=== PATIENT | female | born 1955 | race African-American/Black ===

== ENCOUNTER 2017-01-18 10:00 | Inpatient (IN) | payer OTHER, MEDICAID ==
--- NOTE | 2017-01-18 10:21 | CPEKG ---
Heart Rate: 80 RR Interval: 750 P-R Interval: 212 QRSD Interval: 80 QT Interval: 396 QTC Interval: 457 P [place]: 51 QRS [place]: 10 T Wave [place]: 30 EKG Severity - ABNORMAL ECG - EKG Impression: SINUS RHYTHM EKG Impression: CONSIDER LEFT VENTRICULAR HYPERTROPHY Electronically Signed By: Myra Dill 19-Jan-2017 08:07:55
[2017-01-18] MEDS ORDERED: FUROSEMIDE 20 MG/2 ML VIAL IVP ONE (10:30)
--- NOTE | 2017-01-18 10:43 | EDPHY ---
HPI/HX/ROS/PE/MDM Narrative: CHIEF COMPLAINT: Shortness of breath, peripheral edema HISTORY OF PRESENT ILLNESS: Patient is a 61 y/o female arriving via EMS complaining of worsening shortness of breath onset last night. She has a history of CHF, anemia, diabetes, and stage 4 renal insufficiency. She is not on dialysis though she has been evaluated for this recently. Her creatinine was 3.2 yesterday which she believes is close to baseline for her. She complains of increasing widespread peripheral edema for which her proced tech started her on Lasix and Losartan yesterday. She woke from sleep around 21:30 last night with dyspnea despite home O2 use and staff administered an albuterol nebulizer treatment. This improved her symptoms and she was able to sleep for awhile, but awoke again this morning with dyspnea and required a second albuterol treatment. She does not normally use albuterol. She had some associated nausea that has since resolved. She denies fever, chills, chest pain, palpitations, diarrhea, urinary complaints, headache, lightheadedness. No known history of CAD , valvular disease, or GI disorders. REVIEW OF SYSTEMS: Aside from elements discussed in the HPI, a comprehensive 10-point review of systems was reviewed and is negative. PAST MEDICAL HISTORY: CHF, diabetes, stage 4 renal insufficiency, pneumonia. SOCIAL HISTORY: Resident at [facility]. PCP: Dr. Hemal Ware. Prior medical history reviewed including transfer paperwork from [facility] 01/18/17. VITAL SIGNS: BP is 173/80 GENERAL: Obese, resting comfortably, sitting up, in no respiratory distress. HEENT: Atraumatic. Eyes: No icterus, no injection. Mouth: dry mucous membranes. No erythema or lesions. Neck: supple with no adenopathy. LUNGS: Anterior wheezes bilaterally when supine. No rhonchi or rales. CARDIAC: Mild tachycardic rate and rhythm, no rubs, murmurs or gallops. ABDOMEN: Soft, obese, nontender, nondistended. BACK: No CVA tenderness. EXTREMITIES: Bilateral lower extremity 3+ pitting edema. No trauma. Range of motion is normal throughout. NEURO: Alert and oriented, grossly nonfocal. SKIN: Warm and dry, no rash. PSYCHIATRIC: Normal mentation, no agitation. Portions of this note were transcribed by a durable medical equipment repairer. I personally performed a history, physical exam, medical decision making, and confirmed accuracy of information the transcribed note. ED Course: This is a 61 y/o female with a history of CHF, diabetes, and kidney failure presenting with shortness of breath and peripheral edema. Labs from yesterday show hematocrit 24 and creatinine 3.2. On exam there are bilateral anterior wheezes while supine, and 3+ pitting edema at both lower extremities. Abdomen is benign and patient is afebrile. Plan for IV, basic labs, EKG, chest X-ray, and 20mg IV Lasix. The 12 lead EKG was interpreted by myself. Sinus rhythm rate 80. See hard copy and/or "tracemaster" electronic copy for interpretation. My interpretation of the chest x-ray is cardiomegaly, prominent vascular markings. Dr. Clemons, radiology reads chest X-ray as likely pulmonary edema/CHF. Laboratory data was remarkable for indeterminate troponin at 0.041, elevated BMP 8490, creatinine of 3.3., elevated D-dimer. Patient reports an allergy to aspirin did not receive aspirin in the emergency department. Patient will require admission to the hospital for treatment of her congestive heart failure, indeterminate troponin, and shortness of breath and hypoxemia. She does have a prior history of thromboembolic disease and PEs, and is currently on Xarelto. Recurrent PE is in the differential of the patient's renal insufficiency precludes evaluation by CT scanning at this time. Patient was admitted to the PCU for further evaluation. She did receive Lasix in the emergency department. She remained on oxygen. She does have baseline O2 requirement of 2 L at night and 3 L during the day when she is active. 1220: Spoke with hospitalist service. Dr. Nicole accepts admission. MDM: Differential diagnosis for the patient's shortness of breath was considered including but not limited to pulmonary infectious processes, COPD exacerbation, pulmonary emboli, pulmonary edema, congestive heart failure, and cardiac causes. - Data Points Imaging Results: Imaging Impressions Chest X-Ray 01/18/17 10:30 Impression: 1. Findings suggestive of pulmonary edema/CHF. Bilateral pneumonia is felt to be less likely. 2. Moderate anterior wedge compression of what appears to be T10. Consider DEXA scan at some point to evaluate underlying bone mineral density. Imaging: Discussed imaging studies w/ call or contact centre team leader Radiologist, I viewed and interpreted images myself Laboratory Results: Laboratory Results 01/18/17 11:40 01/18/17 11:30 01/18/17 01/18/17 01/18/17 11:50 11:40 11:40 WBC RBC Hgb Hct MCV MCH MCHC RDW Plt Count MPV Neut % (Auto) Lymph % (Auto) [place] % (Auto) Eos % (Auto) Baso % (Auto) Nucleat RBC Rel Count Absolute Neuts (auto) Absolute Lymphs (auto) Absolute Monos (auto) Absolute Eos (auto) Absolute Basos (auto) Absolute Nucleated RBC Immature Gran % Immature Gran # D-Dimer 1.97 ug/mLFEU H ug/mLFEU (0.00-0.50) Sodium Potassium Chloride Carbon Dioxide Anion Gap BUN Creatinine Estimated GFR Glucose Hemoglobin A1c 7.5 % H % (4.0-6.0) Estim Average Glucose 169 mg/dL H mg/dL (68-126) Calcium Phosphorus Pending Magnesium Pending Total Bilirubin Conjugated Bilirubin Unconjugated Bilirubin AST ALT Alkaline Phosphatase Troponin I NT-Pro-B Natriuret Pep Total Protein Albumin Lipase 01/18/17 01/18/17 11:40 11:30 WBC 7.62 10^3/uL 10^3/uL (3.80-9.50) RBC 2.82 10^6/uL L 10^6/uL (4.18-5.33) Hgb 8.3 g/dL L g/dL (12.6-16.3) Hct 25.1 % L % (38.0-47.0) MCV 89.0 fL fL (81.5-99.8) MCH 29.4 pg pg (27.9-34.1) MCHC 33.1 g/dL g/dL (32.4-36.7) RDW 14.9 % % (11.5-15.2) Plt Count 260 10^3/uL 10^3/uL (150-400) MPV 9.7 fL fL (8.7-11.7) Neut % (Auto) 77.6 % H % (39.3-74.2) Lymph % (Auto) 13.6 % L % (15.0-45.0) [place] % (Auto) 7.3 % % (4.5-13.0) Eos % (Auto) 1.0 % % (0.6-7.6) Baso % (Auto) 0.4 % % (0.3-1.7) Nucleat RBC Rel Count 0.0 % % (0.0-0.2) Absolute Neuts (auto) 5.90 10^3/uL 10^3/uL (1.70-6.50) Absolute Lymphs (auto) 1.04 10^3/uL 10^3/uL (1.00-3.00) Absolute Monos (auto) 0.56 10^3/uL 10^3/uL (0.30-0.80) Absolute Eos (auto) 0.08 10^3/uL 10^3/uL (0.03-0.40) Absolute Basos (auto) 0.03 10^3/uL 10^3/uL (0.02-0.10) Absolute Nucleated RBC 0.00 10^3/uL 10^3/uL (0-0.01) Immature Gran % 0.1 % % (0.0-1.1) Immature Gran # 0.01 10^3/uL 10^3/uL (0.00-0.10) D-Dimer Sodium 136 mEq/L mEq/L (134-144) Potassium 4.1 mEq/L mEq/L (3.5-5.2) Chloride 109 mEq/L mEq/L (97-110) Carbon Dioxide 20 mEq/l L mEq/l (22-31) Anion Gap 7 mEq/L L mEq/L (8-16) BUN 33 mg/dL H mg/dL (7-23) Creatinine 3.3 mg/dL H mg/dL (0.6-1.0) Estimated GFR 14 Glucose 318 mg/dL H mg/dL (70-100) Hemoglobin A1c Estim Average Glucose Calcium 9.4 mg/dL mg/dL (8.5-10.4) Phosphorus Magnesium Total Bilirubin 0.5 mg/dL mg/dL (0.1-1.4) Conjugated Bilirubin 0.2 mg/dL mg/dL (0.0-0.5) Unconjugated Bilirubin 0.3 mg/dL mg/dL (0.0-1.1) AST 16 IU/L IU/L (14-46) ALT 23 IU/L IU/L (9-52) Alkaline Phosphatase 85 IU/L IU/L (38-126) Troponin I 0.041 ng/mL H ng/mL (0.000-0.034) NT-Pro-B Natriuret Pep 8490 pg/mL H pg/mL (0-125) Total Protein 5.9 g/dL L g/dL (6.3-8.2) Albumin 2.9 g/dL L g/dL (3.5-5.0) Lipase 65 IU/L IU/L (23-300) Medications Given: Discontinued Medications Furosemide (Lasix Injection) 20 mg IVP EDNOW ONE Stop: 01/18/17 10:31 Last Admin: 01/18/17 11:14 Dose: 20 mg General Time Seen by Provider: 01/18/17 10:10 Initial Vital Signs: Initial Vital Signs Temperature (C) 36.9 C 01/18/17 10:08 Heart Rate 80 01/18/17 10:08 Respiratory Rate 19 01/18/17 10:08 Blood Pressure 173/80 H 01/18/17 10:08 O2 Sat (%) 88 L 01/18/17 10:08 O2 Delivery Mode Nasal Cannula O2 (L/minute) 2 Allergies/Adverse Reactions: KALYANI Inhibitors Allergy (Verified 01/18/17 10:46) aspirin Allergy (Verified 01/18/17 10:46) gentamicin Allergy (Verified 01/18/17 10:46) lisinopril Allergy (Verified 01/18/17 10:46) metformin Allergy (Verified 01/18/17 10:45) Sulfa (Sulfonamide Antibiotics) Allergy (Verified 01/18/17 10:46) Home Medications: Medication Instructions Recorded ARIPiprazole [Abilify 10 mg (*)] 15 mg PO HS 01/18/17 Insulin Aspart [novoLOG] 3 unit SC TIDMEAL 01/18/17 Insulin Detemir [Levemir] 10 unit SQ DAILY 01/18/17 Labetalol HCl [Trandate 100 mg (*)] 300 mg PO TIDMEAL 01/18/17 Polyethylene Glycol 3350 [Miralax 17 gm PO Q2D 01/18/17 17 gm (*)] Sertraline HCl [Zoloft 50mg (*)] 50 mg PO HS 01/18/17 amLODIPine BESYLATE [Norvasc 10 mg 10 mg PO DAILY 01/18/17 (*)] Departure - Departure Disposition: [facility] Inpatient Acute Clinical Impression: Peripheral edema, Hypoxemia, Shortness of breath, Troponin level elevated Condition: Fair Report Scribed for: Myra Dill Report Scribed by: Rosaura Priest Date of Report: 01/18/17 Time of Report: 11:36
[2017-01-18 11:48] LABS: % IMMATURE GRANULYOCYTES 0.1 % (0.0-1.1); ABSOLUTE IMMATURE GRANULOCYTES 0.01 10^3/uL (0.00-0.10); ADD DIFF? NO; ADD MORPH? NO; ADD SCAN? NO; ATYPICAL LYMPHOCYTE FLAG 0 (0-99); FRAGMENT RBC FLAG 0 (0-99); HEMATOCRIT 25.1 % (38.0-47.0); HEMOGLOBIN 8.3 g/dL (12.6-16.3); LEFT SHIFT FLG 0 (0-99); LIPEMIA HEMOLYSIS FLAG 80 (0-99); MEAN CELL HEMOGLOBIN 29.4 pg (27.9-34.1); MEAN CELL HEMOGLOBIN CONCENTR. 33.1 g/dL (32.4-36.7); MEAN PLATELET VOLUME 9.7 fL (8.7-11.7); PLATELET CLUMPS FLAG 0 (0-99); PLATELET COUNT 260 10^3/uL (150-400); RED BLOOD CELL COUNT 2.82 10^6/uL (4.18-5.33); RED CELL DISTRIBUTION WIDTH 14.9 % (11.5-15.2)
[2017-01-18 11:50] LABS: ALANINE AMINOTRANSFERASE 23 IU/L (9-52); ALBUMIN 2.9 g/dL (3.5-5.0); ALKALINE PHOSPHATASE 85 IU/L (38-126); ANION GAP 7 mEq/L (8-16); ASPARTATE AMINOTRANSFERASE 16 IU/L (14-46); BILIRUBIN,TOTAL 0.5 mg/dL (0.1-1.4); BILIRUBIN-CONJUGATED 0.2 mg/dL (0.0-0.5); BILIRUBIN-UNCONJUGATED 0.3 mg/dL (0.0-1.1); CALCIUM 9.4 mg/dL (8.5-10.4); CARBON DIOXIDE 20 mEq/l (22-31); CHLORIDE 109 mEq/L (97-110); CREATININE 3.3 mg/dL (0.6-1.0); GLOMERULAR FILTRATION RATE 14; GLUCOSE 318 mg/dL (70-100); POTASSIUM 4.1 mEq/L (3.5-5.2); SODIUM 136 mEq/L (134-144); TOTAL PROTEIN 5.9 g/dL (6.3-8.2)
[2017-01-18 12:01] LABS: TROPONIN I 0.041 ng/mL (0.000-0.034)
[2017-01-18] MEDS ORDERED: ONDANSETRON 4 MG/2 ML VIAL IVP PRN (13:41)
[2017-01-18] MEDS ORDERED: ONDANSETRON DISINTEGRATING 4 MG TAB PO PRN (13:41)
[2017-01-18] MEDS ORDERED: D50W 25 GM/50 ML SYR IVP PRN (14:07)
--- NOTE | 2017-01-18 14:13 | PDGENHP ---
History and Physical - Chief Complaint SOB - History of Present Illness 61 yo female with h/o heart failure, stage 4 CKD, and diabetes, presents to ED with shortness of breath. She was seen by her industrial robotics mechanic at [facility] in [place] yesterday and started on Lasix and Losartan. She reports increasing LE and UE edema. She also endorses orthopnea and paroxysmal nocturnal dyspnea. She denies CP. She has been more SOB over past few days and this became more severe today and she was brought to the ED by EMS from [facility]. She is a non-smoker. She has diabetes for which she takes just short acting insulin. In the ED, she was hypertensive, had an elevated BNP, and CXR c/w pulmonary edema. She was given IV Lasix and is admitted to the hospital for further management. History Information - Allergies/Home Medication List Allergies/Adverse Reactions: KALYANI Inhibitors Allergy (Verified 01/18/17 10:46) aspirin Allergy (Verified 01/18/17 10:46) gentamicin Allergy (Verified 01/18/17 10:46) lisinopril Allergy (Verified 01/18/17 10:46) metformin Allergy (Verified 01/18/17 10:45) Sulfa (Sulfonamide Antibiotics) Allergy (Verified 01/18/17 10:46) Home Medications: ARIPiprazole [Abilify 10 mg (*)] 15 mg PO HS 01/18/17 [Last Taken 01/17/17] Insulin Aspart [novoLOG] 3 unit SC TIDMEAL 01/18/17 [Last Taken 01/18/17 09:00] Insulin Detemir [Levemir] 10 unit SQ DAILY 01/18/17 [Last Taken 01/18/17] Labetalol HCl [Trandate 100 mg (*)] 300 mg PO TIDMEAL 01/18/17 [Last Taken 01/18 09:00] Polyethylene Glycol 3350 [Miralax 17 gm (*)] 17 gm PO Q2D 01/18/17 [Last Taken 01/17/17] Sertraline HCl [Zoloft 50mg (*)] 50 mg PO HS 01/18/17 [Last Taken 01/17/17] amLODIPine BESYLATE [Norvasc 10 mg (*)] 10 mg PO DAILY 01/18/17 [Last Taken ] I have personally reviewed and updated: family history, medical history, social history, surgical history - Past Medical History CHF, diabetes type 2, hypertension Additional medical history: CKD stage 4 secondary to diabetic nephropathy, Schizophrenia, Anemia of CKD - Surgical History Reports: no pertinent surgical hx - Family History Additional family history: mother of heart failure in her early 60's - Social History Smoking Status: Never smoked Alcohol Use: None Drug Use: None Additional social history: Lives at [facility]. Schizophrenia, followed by Dr. Coombs. Review of Systems ROS: 10pt was reviewed & negative except for what was stated in HPI & below Physical Exam Temp Pulse Resp BP Pulse Ox 37.2 C 86 15 191/106 H 94 01/18/17 13:59 01/18/17 13:59 01/18/17 13:59 01/18/17 13:59 01/18/17 13:59 O2 (L/minute) 2 Constitutional: no apparent distress Eyes: PERRL Ears, Nose, Mouth, Throat: moist mucous membranes Cardiovascular: regular rate and rhythym, JVD, other (10 cm JVD with HJR) Respiratory: no respiratory distress, inspiratory crackles Gastrointestinal: normoactive bowel sounds, soft, non-tender abdomen Skin: warm Musculoskeletal: other (2+ b/l LE pitting edema) Neurologic: AAOx3 Psychiatric: interacting appropriately Lab Data & Imaging Review 01/18/17 11:40 01/18/17 11:30 WBC 7.62 10^3/uL (3.80-9.50) 01/18/17 11:40 RBC 2.82 10^6/uL (4.18-5.33) L 01/18/17 11:40 Hgb 8.3 g/dL (12.6-16.3) L 01/18/17 11:40 Hct 25.1 % (38.0-47.0) L 01/18/17 11:40 MCV 89.0 fL (81.5-99.8) 01/18/17 11:40 MCH 29.4 pg (27.9-34.1) 01/18/17 11:40 MCHC 33.1 g/dL (32.4-36.7) 01/18/17 11:40 RDW 14.9 % (11.5-15.2) 01/18/17 11:40 Plt Count 260 10^3/uL (150-400) 01/18/17 11:40 MPV 9.7 fL (8.7-11.7) 01/18/17 11:40 Neut % (Auto) 77.6 % (39.3-74.2) H 01/18/17 11:40 Lymph % (Auto) 13.6 % (15.0-45.0) L 01/18/17 11:40 [place] % (Auto) 7.3 % (4.5-13.0) 01/18/17 11:40 Eos % (Auto) 1.0 % (0.6-7.6) 01/18/17 11:40 Baso % (Auto) 0.4 % (0.3-1.7) 01/18/17 11:40 Nucleat RBC Rel Count 0.0 % (0.0-0.2) 01/18/17 11:40 Absolute Neuts (auto) 5.90 10^3/uL (1.70-6.50) 01/18/17 11:40 Absolute Lymphs (auto) 1.04 10^3/uL (1.00-3.00) 01/18/17 11:40 Absolute Monos (auto) 0.56 10^3/uL (0.30-0.80) 01/18/17 11:40 Absolute Eos (auto) 0.08 10^3/uL (0.03-0.40) 01/18/17 11:40 Absolute Basos (auto) 0.03 10^3/uL (0.02-0.10) 01/18/17 11:40 Absolute Nucleated RBC 0.00 10^3/uL (0-0.01) 01/18/17 11:40 Immature Gran % 0.1 % (0.0-1.1) 01/18/17 11:40 Immature Gran # 0.01 10^3/uL (0.00-0.10) 01/18/17 11:40 D-Dimer 1.97 ug/mLFEU (0.00-0.50) H 01/18/17 11:40 Sodium 136 mEq/L (134-144) 01/18/17 11:30 Potassium 4.1 mEq/L (3.5-5.2) 01/18/17 11:30 Chloride 109 mEq/L (97-110) 01/18/17 11:30 Carbon Dioxide 20 mEq/l (22-31) L 01/18/17 11:30 Anion Gap 7 mEq/L (8-16) L 01/18/17 11:30 BUN 33 mg/dL (7-23) H 01/18/17 11:30 Creatinine 3.3 mg/dL (0.6-1.0) H 01/18/17 11:30 Estimated GFR 14 01/18/17 11:30 Glucose 318 mg/dL (70-100) H 01/18/17 11:30 Calcium 9.4 mg/dL (8.5-10.4) 01/18/17 11:30 Total Bilirubin 0.5 mg/dL (0.1-1.4) 01/18/17 11:30 Conjugated Bilirubin 0.2 mg/dL (0.0-0.5) 01/18/17 11:30 Unconjugated Bilirubin 0.3 mg/dL (0.0-1.1) 01/18/17 11:30 AST 16 IU/L (14-46) 01/18/17 11:30 ALT 23 IU/L (9-52) 01/18/17 11:30 Alkaline Phosphatase 85 IU/L (38-126) 01/18/17 11:30 Troponin I 0.041 ng/mL (0.000-0.034) H 01/18/17 11:30 NT-Pro-B Natriuret Pep 8490 pg/mL (0-125) H 01/18/17 11:30 Total Protein 5.9 g/dL (6.3-8.2) L 01/18/17 11:30 Albumin 2.9 g/dL (3.5-5.0) L 01/18/17 11:30 Lipase 65 IU/L (23-300) 01/18/17 11:30 Visualized and Interpreted Chest x-ray results: Yes Chest X-Ray results: other (pulmonary edema) EKG Interpretation: Positive for: normal sinsus rhythm Assessment & Plan Assessment: Acute heart failure - presents with dyspnea, pulmonary edema on CXR, peripheral edema and elevated BNP. Responded to IV Lasix. Trop mildly elevated, suspect strain in setting of acute HF. She is chest pain free. EKG non-ischemic. -cont diuresis with IV Lasix -follow I&O's, daily weights -echo ordered -trend troponin -cardiology consulted Hypertension - BP 190/100's on my exam. Given IV Lasix. Takes Labetalol, Norvasc as outpt. Apparently got a Rx from industrial robotics mechanic for Losartan, but hasn' t started it yet. -await echo, may consider changing Labetalol to Coreg -Resume Norvasc when med rec completed though note this can cause edema -Will defer Losartan while diuresing, start when more euvolemic -prn hydralazine -nitro-paste per cards CKD stage 4 -baseline Cr is 3-3.5. Suspect secondary to diabetic nephropathy. She is followed by nephrology at [facility] in [place]. Renal workup at [facility] 11/2016 included bland urine sediment, atrophic kidneys on renal u/s without hydro, and nephrotic range proteinuria. Cozaar recently resumed with Cr 3.1. -check ua -monitor Cr closely with diuresis -planning for nephrology consult DM type 2 - bg 318 on arrival. -check a1c -start lantus 10 u hs and SSI Anemia of CKD - Had neg EGD/c-scope at [facility], hgb stable. No e/o bleeding -receives aranesp via outpt nephrology Schizoprenia - mood stable. Followed by Dr. Coombs -cont jonny Full code DVT PPLX - Heparin Dispo - admit to inpt. Will likely require >48 hrs hospitalization for management of acute decompensated heart failure
[2017-01-18 14:51] LABS: HEMOGLOBIN A1C 7.5 % (4.0-6.0)
[2017-01-18] MEDS ORDERED: CARVEDILOL 6.25 MG TAB PO ONE (15:58)
[2017-01-18] MEDS: INSULIN LISPRO 100 UNIT/ML SC SCH (16:19)
[2017-01-18] MEDS: FUROSEMIDE 20 MG/2 ML VIAL IVP SCH (16:19)
[2017-01-18] MEDS: NITROGLYCERIN 2% 1 GM PACKET TP SCH (16:22)
[2017-01-18] MEDS: HEPARIN 5,000 UNIT/0.5 ML SYR SC SCH ×2 (16:30→21:46)
[2017-01-18 16:35] LABS: MAGNESIUM 1.8 mg/dL (1.6-2.3)
--- NOTE | 2017-01-18 16:52 | ECHO ---
[id number] + + [address] : : [place] [address] : : [phone] + + Adult Echocardiographic Report + --+ :Name: ISAEL GARCIA MStudy Date: 01/18/2017 02:36 PM BP: 172/116 mm Hg: : Hospital Admission Number: [id number] : :: 1955 Gender: Female Height: 71 in : :Age: 61 yrs Race: A Weight: 251 lb : :Reason For Study: Eval LV Fx : : BSA: 2.3 meter s2: :History: SOB, HTN : + --+ MMode/2D Measurements \T\ Calculations IVSd: 1.1 cm LVIDd: 4.6 cm FS: 35.8 % MV Diam: 3.4 cm LVPWd: 1.3 cm LVIDs: 3.0 cm EDV(Teich): 97.9 ml ESV(Teich): 33.9 ml EF(Teich): 65.4 % Ao root diam: 3.9 cm LVOT diam: 2.0 cm ACS: 1.9 cm LVOT area: 3.1 cm2 Normal Measurement Values: + + :LVIDd (3.5-5.7cm) IVSd (0.6-1.1cm) LVPWd (0.6-1.1cm) Aortic Root (2.0-3.7cm)Left Atrium (1.5-4.0cm): :LV Vol(d) (76-115ml) LV Vol(s) (29-48ml) Ejec Fraction (50-65%)PV Prateek (0.6- 1.2m/s) TV Prateek (0.4-1.0m/s) : :MV E Prateek (0.8-1.0m/s)MV A Prateek (0.3-1.0m/s)LVOT Prateek (0.7-1.2m/s) Asc Ao Prateek ( 0.9-1.8m/s) : + + Doppler Measurements \T\ Calculations MV V2 max: Ao mean PG: LV V1 mean PG: MR max prateek: 205.0 cm/sec 5.7 mmHg 2.3 mmHg 733.3 cm/sec MV max P.8 mmHgAo V2 mean: LV V1 mean: MR max PG: MV V2 mean: 113.0 cm/sec 68.7 cm/sec 216.0 mmHg 98.7 cm/sec Ao V2 VTI: 35.4 cm LV V1 VTI: 25.9 cm MV mean P.1 mmHg MV V2 VTI: 52.2 cm YAKOV(I,D): 2.3 cm2 MV area (1 diam): 9.1 cm2 MVA(VTI): 1.6 cm2 MV Flow area(1diam): 9.1 cm2 MR(RF 1 diam): SV(MV 1 diam): TR max prateek: RF(MV,Ao)(1 diam): 11.8 % 473.5 ml 358.3 cm/sec 0.12 SI(MV 1 diam): TR max PG: RF(MV,LVOT) 51.4 mmHg (1diam): 0.83 203.9 ml/m2 RAP systole: SV(LVOT): 81.3 ml 5.0 mmHg RVSP(TR): 56.4 mmHg Left Ventricle The left ventricle is normal in size. There is mild to moderate concentric left ventricular hypertrophy. The left ventricular ejection fraction is normal. There is Doppler evidence for diastolic dysfunction. Ejection Fraction = 66%. No regional wall motion abnormalities noted. Right Ventricle The right ventricle is normal in size and function. Atria The left atrium is mildly dilated. Right atrial size is normal. Mitral Valve There is mild mitral annular calcification. Small focal calcification at the tip of the anterior mitral leaflet. There is no mitral valve stenosis. There is moderate mitral regurgitation. Tricuspid Valve Normal tricuspid valve. There is mild tricuspid regurgitation. Right ventricular systolic pressure is 57mmHg. There is Doppler evidence for moderate pulmonary hypertension. Aortic Valve The aortic valve is trileaflet. There is no aortic stenosis. There is no aortic insufficiency. Pulmonic Valve The pulmonic valve is normal in structure and function. There is no pulmonic valvular regurgitation. Great Vessels The aortic root is normal size. Pericardium/Pleural Small pericardial effusion. Conclusion A complete two-dimensional transthoracic echocardiogram was performed (2D, M-mode, Doppler and color flow Doppler). The patient is in NSR. The left ventricular ejection fraction is normal. There is Doppler evidence for diastolic dysfunction. Ejection Fraction = 66%. There is mild to moderate concentric left ventricular hypertrophy. The right ventricle is normal in size and function. The left atrium is mildly dilated. There is mild mitral annular calcification. Small focal calcification at the tip of the anterior mitral leaflet. There is moderate mitral regurgitation. There is mild tricuspid regurgitation. Right ventricular systolic pressure is 57mmHg. There is Doppler evidence for moderate pulmonary hypertension. Small pericardial effusion. Final Reading Physician: Rose Soto signed on 01/18/2017 04:51 PM Ordering Physician: Karon Nicole Performed By: Leonard Malik, MELBACS
[2017-01-18 17:22] LABS: COLOR PALE YELLOW; LEUKOCYTE ESTERASE,URINE NEGATIVE (NEGATIVE); NITRITE,URINE NEGATIVE (NEGATIVE)
--- NOTE | 2017-01-18 17:34 | GCON ---
[f rep st] CONSULTATION CARDIOLOGY CONSULTATION DATE OF CONSULTATION: 01/18/2017 INDICATION: Congestive heart failure. HISTORY OF PRESENT ILLNESS: The patient is a pleasant 61-year-old female, admitted through the [facility] Department from [facility]. Unfortunately, she comes to us today without the benefit of [facility] records. Her cardiovascular history is significant for chronic heart failure. It is not nhi r what the nature of her congestive heart failure is. She does have longstanding type 2 diabetes me llitus of at least 17 years duration, associated with stage 4 chronic kidney disease. She is curren tly not on hemodialysis. Additionally, she states that she has severe hypertension which has been d ifficult to control. She had one of her first visits with a field auditor yesterday. Apparently, melodie rabago was prescribed Lasix and losartan. However, these medications were not filled, and she has not st arted taking them yet. She notes that last night she was awakened at about 9:30 with acute shortnes s of breath. This was associated with mild nausea without chest discomfort. At [facility] she h ad received a breathing treatment, and apparently slept throughout the night. She received another breathing treatment this morning. 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 This morning she also develope d more shortness of breath when she was at physical therapy. Apparently, some blood tests were draw n which returned, and she was advised by the staff at [facility] to come to the Emergency Departm ent here. On arrival here, she was noted to be significantly hypertensive. Her blood pressure was 173/88 with a mean of 111. Saturations on room air were 88%, and on 2 L 95%. She was afebrile. Melodie rabago was worked up with basic labs, a chest x-ray, and EKG. These findings suggested that she had volu me overload consistent with congestive heart failure. As a result, she was admitted to the hospital . She notes that she has been very sick since this last June. Apparently, she used to live indepe ndently, however experienced an episode during which she states she lost consciousness. This occurr ed in June, and apparently she was hospitalized at [facility] for about 2 months beginning june. After that, she was transferred to [facility] in [place]. From there she was transferred to [facility] in [place]. Apparently, she was discharged sever al months ago from [facility] apparently because she would not take her medicines. Ultimately, she ended up at [facility]. She has been at [facility] for 3 weeks, and notes that she has been d oing much better since she has been at [facility]. She states that about 3 or 4 weeks ago she wa s in a wheelchair. Currently, she can walk with a cane. REVIEW OF SYSTEMS: In talking to her about her general health, she does have chronic exertional dys pnea. She notes that she has had significant edema, although this has been improving more recently. She notes no anginal quality chest discomfort. She denies palpitations. She has no history of fe chico, chills, or sweats. She does have a chronic cough without sputum production. She has not had a ny episodes of loss of consciousness. PAST MEDICAL HISTORY: 1. Chronic congestive heart failure. As noted above, the exact etiology and type of heart failure (systolic versus diastolic) is not known at the present time. 2. Chronic stage IV renal insufficiency, presumed to be related to her diabetes and hypertension. Currently, she is being followed by Nephrology. Dialysis is being considered. 3. Chronic drug refractory hypertension. 4. Type 2 diabetes mellitus for at least 18 years. 5. Diabetic retinopathy, currently legally blind. Apparently, she has had multiple retinal transpl ants in the past. 6. Unknown episode of loss of consciousness in June as noted above. 7. Morbid obesity. 8. History of ovarian cancer, status post NATI/BSO 30 years ago. 9. Chronic anemia diagnosed in October or November of this year. 10. History of pneumonia. 11. Diabetic peripheral neuropathy. 12. Osteoarthritis. PAST SURGICAL HISTORY: 1. She has had retinal transplants with multiple retinal surgeries between 2010 in 2015. 2. She had a history of a NATI/BSO about 30 years ago. 3. Two live births. ALLERGIES: Multiple, include: Aspirin, which she states makes her feel like she is itching inside. Metformin, which has adverse affects on her kidneys. Artificial sweeteners, which caused her tong ue to swell. KALYANI inhibitors, which cause syncope. Gentamicin eyedrops, which felt like acid in her eyes. FAMILY HISTORY: Her mother apparently at the age of 62 due to complications of congestive hear t failure. MEDICATIONS: These are detailed on the chart and not repeated here. Please note that she was presc ribed, although did not start, Lasix and losartan. SOCIAL HISTORY: She has been now for greater than 10 years. She has 2 children. A son brigitte mckeon lives in [place], who is planning to move locally, and a daughter who lives in [place], although may be moving out of the country. Currently, she lives at [facility]. She is not a smoker. Melodie rabago does not use alcohol. She used to work up until about 2006, at which point she was legally blind. 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 PHYSICAL EXAMINATION: VITAL SIGNS: Her blood pressure currently is 181/103, with a mean of 129, he r heart rate is 83, oxygen saturations on 2 L are 93%. She is afebrile. GENERAL: She is an obese, female, currently not in acute distress. HEENT: She has a large neck with diffic ult to appreciate neck veins. Her carotids are 2+ with no bruits. She has no masses or adenopathy. RESPIRATORY: She has decreased breath sounds at both bases with fine rales bilaterally. She does speak in full sentences, and appears unlabored in her breathing. CARDIAC: Precordial inspection i s unremarkable. Her PMI is nonpalpable. On auscultation, she has a regular rate and rhythm with a 1/6 systolic ejection murmur at the left sternal border. She has a soft 4th heart sound. ABDOMEN: Soft and nontender. She has normal bowel sounds with no masses. EXTREMITIES: Demonstrate pitting edema noted up to the top part of the williamson at about 0.5 inch. VASCULATURE: She has 2+ radial puls es, 2+ carotid pulses, but no bruits. Nonpalpable aorta. NEUROLOGIC: She is pleasant alert and davina ented, and moves all 4 limbs spontaneously. LABORATORY DATA: Her electrocardiogram demonstrates sinus rhythm at 80 beats per minute. She has R to S transition between V3 and V4. Otherwise, her ECG is normal. Her chest x-ray demonstrates cardiomegaly with evidence of left ventricular hypertrophy, left atrial enlargement, small bilateral pleural effusions, and interstitial pulmonary edema, consistent with c ongestive heart failure. White blood cell count of 6.2, hematocrit is 25.1, platelet count of 260,000. D-dimer is elevated 1 .97, sodium 136, potassium 4.1, chloride 101, BUN 33, creatinine 3.3, glucose 318, hemoglobin A1c 7. 5. AST, ALT are normal. Troponin is 0.041, terminal proBNP 8,490. Total protein 5.9, albumin 2.9, lipase 65. IMPRESSION: The patient is a pleasant 61-year-old female who carries a diagnosis of chronic heart f ailure. It is unclear whether heart failure is systolic or diastolic in nature. However, she does not describe having had a heart catheterization, and based on her current medical management, I susp ect that she has chronic heart failure with a preserved ejection fraction. Additionally, she has st age IV chronic renal insufficiency and long-standing diabetes, as well as a history of chronic and d ifficult to control hypertension. She presents now with escalating symptoms of dyspnea in the setti ng of markedly elevated blood pressures. She is in obvious congestive heart failure here in the hos pital today. There is no indication that this represents an acute ischemic event or an acute joseph ry syndrome. Overall I think that her heart failure is on the basis of diastolic dysfunction in the setting of poorly-controlled hypertension and a probable diabetic/hypertensive cardiomyopathy. Unf ortunately, we do not have the advantage of medical records detailing previous cardiac work up, alth ough we are in the process of trying to obtain these records currently. She is hemodynamically stab le, and appears comfortable at the present time. RECOMMENDATIONS: 1. To start with, I would like to transition her from labetalol over to Coreg. I placed her on 12. 5 mg twice daily. 2. I have elected to hold off on instituting Cozaar at the present time. We will be actively diure sing her, and I think it would be best to institute an ARB at a later date. 3. She has been written for Lasix 20 mg IV twice daily. We will carefully follow her volumes. 4. I would like to continue her amlodipine. I have also written for nitroglycerin paste in the [facility] rt term. Additionally, she has IV hydralazine written p.r.n. for markedly elevated blood pressures. 5. An echocardiogram has been ordered. 6. We will plan to trend her enzymes. 7. I have written to try to get records from her previous hospitalizations, as described above, at [facility] for several months. 8. I would like Nephrology to consult and help us during her management. 9. Further recommendations will be made pending her response to therapy and overall hospital course . /[id number]/MODL
[2017-01-18 18:12] LABS: WBC,URINE NONE SEEN /hpf (0-3)
[2017-01-18] MEDS: ACETAMINOPHEN 325 MG TAB PO PRN (19:39)
[2017-01-18] MEDS: hydrALAZINE 25 MG TAB PO PRN (19:40)
[2017-01-18] MEDS: INSULIN GLARGINE 100 UNITS/ML SYRINGE SC SCH (21:31)
[2017-01-18] MEDS: ARIPiprazole 10 MG TAB PO SCH (21:46)
[2017-01-18] MEDS: SERTRALINE HCL 50 MG TAB PO SCH (21:46)
[2017-01-19] MEDS: NITROGLYCERIN 2% 1 GM PACKET TP SCH ×5 (00:59→23:42)
[2017-01-19] MEDS: hydrALAZINE 25 MG TAB PO PRN ×3 (04:50→23:42)
[2017-01-19 05:15] LABS: % IMMATURE GRANULYOCYTES 0.2 % (0.0-1.1); ABSOLUTE IMMATURE GRANULOCYTES 0.01 10^3/uL (0.00-0.10); ADD DIFF? NO; ADD MORPH? NO; ADD SCAN? NO; ATYPICAL LYMPHOCYTE FLAG 0 (0-99); FRAGMENT RBC FLAG 0 (0-99); HEMATOCRIT 23.2 % (38.0-47.0); HEMOGLOBIN 7.6 g/dL (12.6-16.3); LEFT SHIFT FLG 0 (0-99); LIPEMIA HEMOLYSIS FLAG 80 (0-99); MEAN CELL HEMOGLOBIN 29.1 pg (27.9-34.1); MEAN CELL HEMOGLOBIN CONCENTR. 32.8 g/dL (32.4-36.7); MEAN CELL VOLUME 88.9 fL (81.5-99.8); MEAN PLATELET VOLUME 10.2 fL (8.7-11.7); PLATELET CLUMPS FLAG 10 (0-99); PLATELET COUNT 272 10^3/uL (150-400); RED BLOOD CELL COUNT 2.61 10^6/uL (4.18-5.33); RED CELL DISTRIBUTION WIDTH 14.7 % (11.5-15.2)
[2017-01-19 05:36] LABS: ALBUMIN 2.6 g/dL (3.5-5.0); ANION GAP 7 mEq/L (8-16); CALCIUM 9.3 mg/dL (8.5-10.4); CARBON DIOXIDE 22 mEq/l (22-31); CHLORIDE 110 mEq/L (97-110); CREATININE 3.1 mg/dL (0.6-1.0); GLOMERULAR FILTRATION RATE 15; GLUCOSE 167 mg/dL (70-100); POTASSIUM 3.6 mEq/L (3.5-5.2); SODIUM 139 mEq/L (134-144)
[2017-01-19] MEDS: HEPARIN 5,000 UNIT/0.5 ML SYR SC SCH ×3 (06:04→21:36)
[2017-01-19] MEDS: CARVEDILOL 25 MG TAB PO SCH ×2 (08:23→17:16)
[2017-01-19] MEDS: INSULIN LISPRO 100 UNIT/ML SC SCH ×3 (08:24→17:50)
[2017-01-19] MEDS: FUROSEMIDE 20 MG/2 ML VIAL IVP SCH ×2 (08:25→15:03)
[2017-01-19] MEDS ORDERED: LOSARTAN POTASSIUM 25 MG TAB PO SCH (09:00)
[2017-01-19] MEDS ORDERED: ARIPiprazole 10 MG TAB PO SCH (09:00)
--- NOTE | 2017-01-19 09:50 | SOAPPROG ---
SOAP Progress Note Assessment/Plan: Assessment: 61-year-old female admitted with decompensated congestive heart failure. Her echocardiogram indicates preserved left ventricular systolic function, evidence of diastolic dysfunction and at least moderate mitral regurgitation. She has mild to moderate left ventricular hypertrophy as well. Comorbidities include longstanding type 2 diabetes mellitus, stage IV chronic renal insufficiency and historically resistant hypertension. Since being admitted we had a nice diuresis. Her creatinine has actually improved slightly following the administration of IV Lasix. Plan: 1. I would like to continue her current medical management. 2. We have asked Nephrology to see the patient. 3. Once she is near euvolemic, I think that we can start an ARB if this is thought appropriate by Nephrology. 4. I have requested records from her previous hospitalization at [facility]. 5. We will follow along. 01/19/17 09:47 Subjective: She states that she is feeling much better today. She has less pressure in her legs and overall feels more comfortable. She denies chest pain, significant dyspnea, dizziness and lightheadedness. She had a nice diuresis overnight at a little bit more than 1 L. Objective: Vital Signs Temp Pulse Resp BP Pulse Ox 36.8 C 85 18 156/106 H 98 01/19/17 08:00 01/19/17 08:00 01/19/17 08:00 01/19/17 08:00 01/19/17 08:00 Laboratory Results 01/19/17 04:13 01/19/17 04:13 01/18/17 01/19/17 01/20/17 05:59 05:59 05:59 Intake Total 1090 Output Total 2100 Balance -1010 Physical Exam - Physical Exam General Appearance: WD/WN, no apparent distress Neck: non-tender, full range of motion Respiratory: decreased breath sounds (At the bases associated with fine rales), rales (At the bases), No accessory muscle use, No rhonchi Cardiac/Chest: regular rate, rhythm, edema (Improved however still present bilaterally), gallop (S4), No JVD Peripheral Pulses: 2+: carotid (R), carotid (L) Abdomen: non-tender Pelvic Exam: deferred Rectal: deferred ICD10 Worksheet Patient Problems: Problems Problem Status Onset Peripheral edema Acute Hypoxemia Acute Shortness of breath Acute Troponin level elevated Acute
--- NOTE | 2017-01-19 11:20 | HOSPPROG ---
Hospitalist Progress Note Assessment/Plan: Acute heart failure - Echo shows preserved EF, diastolic dysfunction and mod Diuresing slowly, net neg 1L since arrival. Minimal trop elevation likely strain in setting of acute HF. She is chest pain free. EKG non-ischemic. -cont diuresis with IV Lasix -follow I&O's, daily weights -cardiology following Hypertension - BP 190/100's on arrival, improved to 160/90. Takes Labetalol, Norvasc as outpt. Apparently got a Rx from [employer] for Losartan, but hasn' t started it yet. -changed Labetalol to Coreg, up-titrate as needed -Cont Norvasc -Discussed starting Losartan with renal, who recommends we do it here while monitoring her daily renal function and lytes -prn hydralazine -nitro-paste per cards, will dc this as BP better controlled CKD stage 4 -baseline Cr is 3-3.5. Suspect secondary to diabetic nephropathy. Cr down a bit with diuresis. She is followed by nephrology at [facility] in [place]. Renal workup at [facility] 11/2016 included bland urine sediment, atrophic kidneys on renal u/s without hydro, and nephrotic range proteinuria. UA with 3+ protein here. Case discussed with Dr. Chaudhary, nephrology. -monitor Cr closely with diuresis -initiating ARB as above, d/w renal DM type 2 - bg 318 on arrival. A1c 7.5, fairly well controlled. -cont basal / bolus insulin Anemia of CKD - Had neg EGD/c-scope at [facility], hgb stable. No e/o bleeding. -epo per renal Schizoprenia - mood stable. Followed by Dr. Coombs -cont jonny Full code DVT PPLX - Heparin Dispo - cont inpt. Subjective: Pt feels much better today. Breathing improved. STill with LE edema, but no more discomfort from edema. No fevers. No CP. No SOB at rest. Objective: Vital Signs Temp Pulse Resp BP Pulse Ox 36.8 C 85 18 156/106 H 98 01/19/17 08:00 01/19/17 08:00 01/19/17 08:00 01/19/17 08:00 01/19/17 08:00 Laboratory Results 01/19/17 04:13 01/19/17 04:13 01/18/17 01/19/17 01/20/17 05:59 05:59 05:59 Intake Total 1090 Output Total 2100 Balance -1010 - Physical Exam Constitutional: no apparent distress Eyes: PERRL Ears, Nose, Mouth, Throat: moist mucous membranes Cardiovascular: regular rate and rhythym Respiratory: no respiratory distress, clear to auscultation Gastrointestinal: normoactive bowel sounds, soft, non-tender abdomen Skin: warm Musculoskeletal: other (2+ b/l LE pitting edema) Neurologic: AAOx3 Psychiatric: interacting appropriately ICD10 Worksheet Patient Problems: Problems Problem Status Onset Hypoxemia Acute Peripheral edema Acute Shortness of breath Acute Troponin level elevated Acute
[2017-01-19] MEDS ORDERED: POTASSIUM CL 20 MEQ TAB PO SCH (11:30)
--- NOTE | 2017-01-19 12:00 | SOAPPROG ---
SOAP Progress Note Assessment/Plan: Assessment:Plan: Consult Dictated Stage 4 CKD eGFR 18 DM Proteinuria Likely due to DM Quantify urine protein Start ARB Diurese as tolerated Titrate up Coreg CPM with [facility] Review old records Continue GAYATRI for anemia with EPO Check iron studies and replace if needed No IV or blood draws on L arm to preserve veins for future AVF if needed. Will follow Avoid NSAIDs and IV contrast 01/19/17 11:57 Objective: Vital Signs Temp Pulse Resp BP Pulse Ox 36.8 C 85 18 156/106 H 98 01/19/17 08:00 01/19/17 08:00 01/19/17 08:00 01/19/17 08:00 01/19/17 08:00 Laboratory Results 01/19/17 04:13 01/19/17 04:13 01/18/17 01/19/17 01/20/17 05:59 05:59 05:59 Intake Total 1090 Output Total 2100 700 Balance -1010 -700 ICD10 Worksheet Patient Problems: Problems Problem Status Onset Peripheral edema Acute Hypoxemia Acute Shortness of breath Acute Troponin level elevated Acute
[2017-01-19] MEDS: LOSARTAN POTASSIUM 25 MG TAB PO SCH (12:16)
[2017-01-19 13:03] LABS: % SATURATION 12 % (20-55); TOTAL IRON BINDING CAPACITY 217 ug/dL (260-490)
--- NOTE | 2017-01-19 13:06 | GHP ---
[f rep st] HISTORY AND PHYSICAL DATE OF ADMISSION: 01/18/2017 REASON FOR CONSULTATION: 1. Stage 4 chronic kidney disease. 2. Probable diabetic nephropathy. 3. Estimated GFR 18. 4. Hypertension. 5. Congestive heart failure with diastolic dysfunction. 6. Moderate pulmonary hypertension. 7. Lower extremity edema. RECOMMENDATION: 1. Proceed with initiation of ARB. 2. Avoid IVs, blood pressures, blood draws, in the patient's left arm. 3. Quantify urine protein excretion. 4. Review outpatient records. 5. Avoid nonsteroidals and IV contrast. 6. Optimize fluid status. 7. Check iron studies. 8. Continue management with GAYATRI. 9. Transfuse if needed. HISTORY: The patient is a very pleasant, 61-year-old female who I have been asked to consult on by Dr. Karon Nicole for her chronic kidney disease. She has known about her chronic kidney disease fo r at least the last 3 years. She had been under the care of Dr. Marion at [facility]. She was under his care for. Approximately 12 years. Recently had problems with multiple hospitalizations while living in a nursing facility down in [facility]. She had at least 3 hospitalizations related to cardiac decompensation and edema. The most rece nt 1 appears to have been at [facility] this last October for pneumonia. It sounds like s he went into acute renal failure, with her creatinine going up to 6.9. She had 6 days without any u rine output. She recovered without need of dialysis. She currently is residing at [facility]. She has had 1 outpatient [address] visit with [address] Bennett newman at [facility]. The patient is now living permanently up here in [place] and would like to establish care up here. She has chronic kidney disease with history of nephrotic-range proteinuria. Her kidney disease is f elt to be due to diabetes. Her outpatient serum creatinine done this last month have ranged from le vels of 3 to 3.2, between December 27 and January 18 of this year. Older measurements of serum crea tinine are not available at the time of this dictation. The patient has also been anemic with hemat ocrit between 24 and 29. She has a history of iron deficiency as well. She has been receiving Fredo marley as an outpatient, per verbal report. She comes in now with shortness of breath and evidence of lower extremity edema and some pulmonary v ascular congestion. She has been treated with diuretics and oxygen. She states she feels much impr yamini. She has been evaluated by Dr. Chaves. Old records are being reviewed. Echocardiogram reveale d LVH with diastolic dysfunction with a preserved ejection fraction of 66%. She has mitral regurgit ation with pulmonary hypertension with an RVSP of 57. She has had nftjzsble-od-fwromue high blood pressure. Currently, she remains hypertensive and her m edications are being adjusted. Although she has had hypertension and diabetes, she has no history of stroke or heart attack. She h as had diabetes and hypertension since the year 1999. Her other medical problems include depression . She states that she became very depressed after the loss of her mother back in 1991. The the [facility] chart says she has schizoaffective disorder. She also has history of ovarian cancer, iron deficie ncy, and anemia along with her history of diabetes, chronic kidney disease, CHF, and hypertension. SURGICAL HISTORY: Right arm surgery as well as ovarian cancer surgery with a TAHBSO. She had ovari an cancer diagnosed at age 32. She has had multiple eye surgeries, the last being performed on 02/24. She was under the care of Dr. [place]. MEDICATIONS: OUTPATIENT MEDICATIONS: Labetalol 300 mg 3 times daily. Insulin 3 units with meals. Abilify 15 mg at bedtime. Sertraline 50 mg at bedtime. Amlodipine 10 mg daily. Polyethylene glycol every 2 days. Insulin detemir 10 un its subcu daily. CURRENT MEDICATIONS: Include: Tylenol, amlodipine, Abilify, Coreg 12.5 mg twice daily, Lasix 20 mg IV twice daily, hepar in subcu, hydralazine if needed. Lantus, lispro, nitroglycerin patch, Zofran, polyethylene glycol, and sertraline. ALLERGIES: Include KALYANI inhibitors, aspirin, gentamicin, lisinopril, metformin, and sulfa. FAMILY HISTORY: Hypertension and diabetes. Her father lived to [facility]. He was a career marine ursula g 38 years in the armed forces and then worked in the railroad. He had alcoholism, tobacco, and malina g abuse. He evidently left his first had a second family in [place], [place]. The patient' s mother was a precision farming specialist's daughter. She at age 62 from complications of CHF in 1991. She also had diabetes. Her mother and her siblings were raised in [place], [place]. She is 1 of 6 siblin gs with 1 brother and 4 other sisters. There are 2 sisters living 1 in [place] and 1 in [place] . She is the youngest of 6. FAMILY HISTORY: Diabetes in her siblings. SOCIAL HISTORY: She is nondrinker and nonsmoker. Denies drug use. She has been . She in 2000. She had been for 22 years. She has 1 son who lives on the [facility] [place] and works for [employer] and plans to relocate here to the [facility]. Her daughter lives in [place], age 31, and is a fuel island attendant. 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 She moved [place] in 1988. 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 She now resides at [facility]. She is legally blind. She lost her vision in 2008. REVIEW OF SYSTEMS: Remarkable for pain in her feet, hands, and other joints. She complains of shoo ting neuropathy. She has decreased vision. She has had shortness of breath and edema. She has had no chest pain. She denies any other problems. PHYSICAL EXAMINATION: VITAL SIGNS: Temp 36.8 pulse 85, respirations 18. Blood pressure 156/106. She sats 98% on 2 L nasal cannula. Her weight was 112 kg. She stands 180.3 cm tall. APPEARANCE: No apparent distress. SKIN: Unremarkable. HEENT: Atraumatic, normocephalic. She states with her vision, her color vision has come back. She can make out general descriptions of my face and what I am wearing, but cannot for example see the color of my eyes and make out other facial details. NEC K: Unremarkable. HEART: Irregular with paired beats and with a 2/6 murmur. LUNGS: Remarkably cl ear to auscultation bilaterally to the bases. ABDOMEN: Obese, but benign. She has positive bowel sounds. Soft, nontender without rebound or guarding. No obvious organomegaly or masses. There is no obvious hepatosplenomegaly or masses. She has a scar on her right antecubital. She states that was done when she was admitted to [facility] after being found down at home. The exact nature of the surgery is unclear, but the patient says they are looking for some sort of blood clot in that a rm. EXTREMITIES: Edema up to her knees and a little bit into her thighs. SKIN: Color is normal. Skin is dry, warm, and intact. PSYCHIATRIC: Mood and affect are normal. LABORATORY DATA: Labs show a creatinine that is stable at 3.1 with normal electrolytes. Hematocrit 7.6. Urine dipstick shows 3+ protein and 3+ glucose. Iron studies will be requested. ASSESSMENT: Chronic kidney disease. This is resumed to be due to diabetic nephropathy. The patien olya has a longstanding history of both diabetes and hypertension. Obviously, she could have component s of both, affecting her kidney function. Right now, her kidney function appears to be stable and a t baseline. We will request old records to get a better idea of the duration and severity of her modesto kidney disease. We will look at outside records. I do not think she needs repeat serologic t esting, as I suspect she has already been incompletely evaluated this last year. I do not think she needs renal imaging at this time. We will try to get some of those records from [facility]. She has stage 4 chronic kidney disease based on her EGFR of 18. Her current cardiac status does not seem to be severe enough to preclude evaluation for renal transplant. The patient does have intere st in renal transplantation. She states that she would pursue dialysis if she did reach end-stage r enal disease. At the present time, the focus will be on keeping her current kidney function stable and on optimizing her cardiopulmonary and renal status. I think it is important that she get started on ARB, given her LVH and her proteinuria. It sounds l hailey she did not tolerate KALYANI inhibitors in the past. We will see how she does with the ARB. As she has high risk for reaching end-stage renal disease and needing dialysis, we should plan ahead and avoid IVs, blood draws on her left arm to preserve veins on that side. The patient is right lugo nded. I have asked her to only get blood draws and IVs on the right arm from now. I will quantify her urine protein to see if, indeed, she has nephrotic range proteinuria. Obviously , this could be contributing to her edema formation. Her most recent serum albumin was 2.6. With t his sort of protein deficiency, she should not be on a protein restriction with her diet. Currently her blood pressure is above target. Her cardiac medications are being adjusted. I would both optimize dosing of her Coreg and her losartan depending on how her renal function and potassium tolerate those medications. She is on a calcium channel verito. With her diastolic dysfunction, this should be continued. She is getting Lasix to control her volume status. Obviously, this will be need to be adjusted to m aintain proper fluid balance. At the present time. She seems to be responding well to the IV dosin g that has been given overnight. /[id number]/MODL
[2017-01-19] MEDS: ACETAMINOPHEN 325 MG TAB PO PRN ×2 (15:00→19:56)
[2017-01-19] MEDS: EPOETIN ALFA 10,000 UNIT/ML VIAL SC SCH (15:00)
[2017-01-19] MEDS: ARIPiprazole 10 MG TAB PO SCH (19:57)
[2017-01-19] MEDS: SERTRALINE HCL 50 MG TAB PO SCH (19:58)
[2017-01-19] MEDS: INSULIN GLARGINE 100 UNITS/ML SYRINGE SC SCH (21:37)
[2017-01-20 04:49] LABS: HEMATOCRIT 23.4 % (38.0-47.0); HEMOGLOBIN 7.7 g/dL (12.6-16.3)
[2017-01-20 04:56] LABS: ALBUMIN 2.4 g/dL (3.5-5.0); ANION GAP 5 mEq/L (8-16); CALCIUM 9.3 mg/dL (8.5-10.4); CARBON DIOXIDE 23 mEq/l (22-31); CHLORIDE 110 mEq/L (97-110); CREATININE 3.2 mg/dL (0.6-1.0); GLOMERULAR FILTRATION RATE 15; GLUCOSE 169 mg/dL (70-100); POTASSIUM 3.4 mEq/L (3.5-5.2); SODIUM 138 mEq/L (134-144)
[2017-01-20] MEDS: HEPARIN 5,000 UNIT/0.5 ML SYR SC SCH ×3 (05:29→23:37)
[2017-01-20] MEDS: NITROGLYCERIN 2% 1 GM PACKET TP SCH ×4 (05:29→23:37)
[2017-01-20] MEDS: FUROSEMIDE 20 MG/2 ML VIAL IVP SCH ×2 (08:17→15:18)
[2017-01-20] MEDS: LOSARTAN POTASSIUM 25 MG TAB PO SCH ×2 (08:17→09:44)
[2017-01-20] MEDS: INSULIN LISPRO 100 UNIT/ML SC SCH ×3 (08:17→17:56)
[2017-01-20] MEDS: hydrALAZINE 25 MG TAB PO PRN ×2 (08:18→15:59)
[2017-01-20] MEDS: CARVEDILOL 25 MG TAB PO SCH ×2 (08:18→17:57)
[2017-01-20] MEDS: POLYETHYLENE GLYCOL 3350 17 GM PKT PO SCH (08:19)
[2017-01-20] MEDS ORDERED: POTASSIUM CL 20 MEQ TAB PO ONE (08:33)
[2017-01-20] MEDS ORDERED: FUROSEMIDE 20 MG/2 ML VIAL IVP ONE (08:59)
--- NOTE | 2017-01-20 08:59 | SOAPPROG ---
SOAP Progress Note Assessment/Plan: Assessment: 61-year-old female admitted with decompensated congestive heart failure. Her echocardiogram indicates preserved left ventricular systolic function, evidence of diastolic dysfunction and at least moderate mitral regurgitation. She has mild to moderate left ventricular hypertrophy as well. Comorbidities include longstanding type 2 diabetes mellitus, stage IV chronic renal insufficiency and historically resistant hypertension. Since being admitted we had a nice diuresis. Her creatinine remains stable. She is clinically improving. In my review of her labs it seems that she likely has nephrotic range proteinuria. Plan: 1. We will plan to continue her current medications. I appreciate the input from Nephrology. 2. I will add an additional dose of Lasix this afternoon. 3. I think it is very likely that she will require an additional antihypertensive to achieve adequate blood pressure control. I will defer to Nephrology regarding choice of agent. 4. Will follow along. 01/20/17 08:58 Subjective: Today she states she feels even better than yesterday. She has less swelling and more mobility in her legs. She is able to ambulate a little bit better than she has been. She denies significant dyspnea and chest discomfort. Objective: Vital Signs Temp Pulse Resp BP Pulse Ox 36.7 C 75 16 182/97 H 99 01/20/17 07:18 01/20/17 07:18 01/20/17 07:18 01/20/17 07:18 01/20/17 07:18 Laboratory Results 01/20/17 04:19 01/20/17 04:19 01/19/17 01/20/17 01/21/17 05:59 05:59 05:59 Intake Total 1090 2145 Output Total 2100 3000 Balance -1010 -855 Physical Exam - Physical Exam General Appearance: WD/WN, no apparent distress Neck: non-tender, full range of motion Respiratory: lungs clear, decreased breath sounds (At the bases) Cardiac/Chest: regular rate, rhythm, edema, No gallop, No JVD Peripheral Pulses: 2+: carotid (R), carotid (L) Abdomen: non-tender Pelvic Exam: deferred Rectal: deferred ICD10 Worksheet Patient Problems: Problems Problem Status Onset Peripheral edema Acute Hypoxemia Acute Shortness of breath Acute Troponin level elevated Acute
[2017-01-20] MEDS ORDERED: D10W 250 ML PRN HYPOGLYCEMIA IV (09:30)
--- NOTE | 2017-01-20 10:17 | SOAPPROG ---
SOAP Progress Note Assessment/Plan: Assessment:Plan: Consult Dictated Stage 4 CKD-creatinine remains stable at 3.2 -eGFR 18 -DM with Proteinuria -CKD Likely due to DM Quantify urine protein HTN with LVH -Started ARB yesterday, dose increased today from 25 to 50 -creatinine okay -underlying diastolic dysfunction -Titrate up Coreg -CPM with CCB Edema with increased R heart pressurs-Diurese as tolerated -extra dose today per Dr. Chaves -patient will restrict fluid Hypokalemia-replace as needed, dose ordered for today, KCl 40mEq PO x 1 Anemia-Continue GAYATRI for anemia with EPO -iron studies with low FeSat -will start oral iron and replace as needed No IV or blood draws on L arm to preserve veins for future AVF if needed. Avoid NSAIDs and IV contrast 01/20/17 10:17 Subjective: stable overnite, remains edematous and hypertensive Objective: Vital Signs Temp Pulse Resp BP Pulse Ox 36.7 C 75 16 182/97 H 99 01/20/17 07:18 01/20/17 07:18 01/20/17 07:18 01/20/17 07:18 01/20/17 07:18 Laboratory Results 01/20/17 04:19 01/20/17 04:19 01/19/17 01/20/17 01/21/17 05:59 05:59 05:59 Intake Total 1090 2145 680 Output Total 2100 3000 550 Balance -1010 -855 130 Physical Exam - Physical Exam General Appearance: WD/WN, alert, no apparent distress EENT: normal ENT inspection Neck: normal inspection Respiratory: lungs clear, normal breath sounds, No respiratory distress Cardiac/Chest: regular rate, rhythm, systolic murmur, No diastolic murmur Abdomen: normal bowel sounds, non-tender, soft, No hepatomegaly, No splenomegaly Skin: normal color, warm/dry, cyanosis Extremities: swelling Neuro/Psych: alert, normal mood/affect ICD10 Worksheet Patient Problems: Problems Problem Status Onset Hypoxemia Acute Peripheral edema Acute Shortness of breath Acute Troponin level elevated Acute
[2017-01-20] MEDS: FERROUS SULFATE 325 MG TAB PO SCH (12:05)
--- NOTE | 2017-01-20 12:15 | HOSPPROG ---
Hospitalist Progress Note Assessment/Plan: Acute heart failure - Echo shows preserved EF, diastolic dysfunction and mod Diuresing slowly, net neg 2L, weight down 2 kg since arrival. Minimal trop elevation likely strain in setting of acute HF. She is chest pain free. EKG non-ischemic. -cont diuresis with IV Lasix, extra dose given today -follow I&O's, daily weights -cardiology following Hypertension - BP 190/100's on arrival, improved to 150's/80's. Takes Labetalol , Norvasc as outpt. Apparently got a Rx from secondary history teacher for Losartan, but hasn't started it yet. -changed Labetalol to Coreg, up-titrated to 25 mg BID today -up-titrate Losartan, started yesterday, follow Cr, lytes -Cont Norvasc -prn hydralazine -nitro-paste per cards, will dc this as BP better controlled CKD stage 4 -baseline Cr is 3-3.5. Suspect secondary to diabetic nephropathy. Cr down a bit with diuresis. She is followed by nephrology at [facility] in [place], will likely change care to [facility] since she lives at [facility] now. Renal workup at [facility] 11/2016 included bland urine sediment, atrophic kidneys on renal u/s without hydro, and nephrotic range proteinuria. UA with 3+ protein here. Case discussed with Dr. Chaudhary, nephrology. -monitor Cr closely with diuresis -restricted LUE for possible dialysis needs in future -avoid nephrotoxic agents LE edema likely secondary to HF - a bit more asymmetric today, d dimer elevated in ED on arrival -check LE u/s to r/o DVT Hypokalemia in setting of diuresis - replaced with oral K, follow closely with new ARB on board DM type 2 - bg 318 on arrival. A1c 7.5, though bg's remain in 200's here -up-titrate lantus and lispro insulin Anemia of CKD - Had neg EGD/c-scope at [facility], hgb stable. No e/o bleeding. -epo per renal Schizoprenia - mood stable. Followed by Dr. Coombs -cont abilifdelfino and zoloft Full code DVT PPLX - Heparin Dispo - cont inpt. Subjective: Pt feels much better. Breathing improved. She is thrilled to be able to see veins in her hands, which are less puffy. Still with significant LE edema. No CP or SOB. Objective: Vital Signs Temp Pulse Resp BP Pulse Ox 36.7 C 88 18 155/86 H 99 01/20/17 07:18 01/20/17 11:20 01/20/17 11:20 01/20/17 11:20 01/20/17 11:20 Laboratory Results 01/20/17 04:19 01/20/17 04:19 01/19/17 01/20/17 01/21/17 05:59 05:59 05:59 Intake Total 1090 2145 680 Output Total 2100 3000 950 Balance -1010 -855 -270 - Physical Exam Constitutional: no apparent distress Eyes: PERRL Ears, Nose, Mouth, Throat: moist mucous membranes Cardiovascular: regular rate and rhythym Respiratory: no respiratory distress, clear to auscultation Gastrointestinal: normoactive bowel sounds, soft, non-tender abdomen Skin: warm Musculoskeletal: other (2+ b/l LE pitting edema persists, R>L) Neurologic: AAOx3 Psychiatric: interacting appropriately ICD10 Worksheet Patient Problems: Problems Problem Status Onset Hypoxemia Acute Peripheral edema Acute Shortness of breath Acute Troponin level elevated Acute
[2017-01-20] MEDS ORDERED: D50W 25 GM/50 ML SYR IVP PRN (12:18)
--- NOTE | 2017-01-20 13:57 | CPEKG ---
Heart Rate: 78 RR Interval: 769 P-R Interval: 200 QRSD Interval: 80 QT Interval: 396 QTC Interval: 452 P Hardin: 56 QRS Hardin: 12 T Wave Hardin: 47 EKG Severity - BORDERLINE ECG - EKG Impression: SINUS RHYTHM EKG Impression: ST ELEV, PROBABLE NORMAL EARLY REPOL PATTERN Electronically Signed By: Allen Morgan 21-Jan-2017 10:20:41
[2017-01-20] MEDS: ARIPiprazole 10 MG TAB PO SCH (20:56)
[2017-01-20] MEDS: SERTRALINE HCL 50 MG TAB PO SCH (20:57)
[2017-01-20] MEDS: INSULIN GLARGINE 100 UNITS/ML SYRINGE SC SCH (20:57)
[2017-01-20] MEDS: ACETAMINOPHEN 325 MG TAB PO PRN (21:51)
[2017-01-21 05:11] LABS: ALBUMIN 2.4 g/dL (3.5-5.0); ANION GAP 5 mEq/L (8-16); CALCIUM 9.3 mg/dL (8.5-10.4); CARBON DIOXIDE 23 mEq/l (22-31); CHLORIDE 110 mEq/L (97-110); CREATININE 3.3 mg/dL (0.6-1.0); GLOMERULAR FILTRATION RATE 14; GLUCOSE 102 mg/dL (70-100); POTASSIUM 3.2 mEq/L (3.5-5.2); SODIUM 138 mEq/L (134-144)
[2017-01-21] MEDS: HEPARIN 5,000 UNIT/0.5 ML SYR SC SCH ×3 (05:39→20:36)
[2017-01-21] MEDS: hydrALAZINE 25 MG TAB PO PRN ×3 (05:39→23:56)
[2017-01-21] MEDS: NITROGLYCERIN 2% 1 GM PACKET TP SCH ×2 (05:40→13:35)
[2017-01-21] MEDS: LOSARTAN POTASSIUM 25 MG TAB PO SCH (08:16)
[2017-01-21] MEDS: CARVEDILOL 25 MG TAB PO SCH ×2 (08:16→17:08)
[2017-01-21] MEDS: FERROUS SULFATE 325 MG TAB PO SCH (08:17)
[2017-01-21] MEDS: FUROSEMIDE 20 MG/2 ML VIAL IVP SCH ×2 (08:17→14:50)
[2017-01-21] MEDS: INSULIN LISPRO 100 UNIT/ML SC SCH ×3 (08:24→17:07)
--- NOTE | 2017-01-21 08:54 | SOAPPROG ---
SOAP Progress Note Assessment/Plan: Assessment:Plan: Consult Dictated Stage 4 CKD-creatinine remains stable at 3.3 -eGFR 18 -DM with Proteinuria -CKD Likely due to DM -urine protein/urine creatinine = 16 -this could represent non-diabetic disease given the severity of urine protein excretion -will review outpatient records for previous eval HTN with LVH -Started ARB, dose increased yesterday from 25 to 50 -creatinine okay -underlying diastolic dysfunction -Titrate up Coreg as tolerated -CPM with CCB -given recent dose adjustments to ARB and BB, I would favor leaving the dosing stable today Edema with increased R heart pressurs-Diurese as tolerated -extra dose yesterday per Dr. Chaves -patient will restrict fluid -great UO -weight down overnite from 110.6 to 99.3kg -US neg for DVT Hypokalemia-replace as needed, dose ordered for today, KCl 40mEq PO Bid x 4 doses Anemia-Continue GAYATRI for anemia with EPO -iron studies with low FeSat -will start oral iron and replace as needed No IV or blood draws on L arm to preserve veins for future AVF if needed. Avoid NSAIDs and IV contrast 01/21/17 08:54 Subjective: edema better, especially behind her knees Objective: Vital Signs Temp Pulse Resp BP Pulse Ox 36.7 C 80 25 H 167/87 H 100 01/21/17 08:00 01/21/17 08:16 01/21/17 08:00 01/21/17 08:17 01/21/17 08:00 Laboratory Results 01/20/17 04:19 01/21/17 04:41 01/20/17 01/21/17 01/22/17 05:59 05:59 05:59 Intake Total 2145 1020 Output Total 3000 3550 Balance -859 -5759 Physical Exam - Physical Exam General Appearance: WD/WN, alert, no apparent distress, obese EENT: normal ENT inspection Neck: normal inspection Respiratory: lungs clear, normal breath sounds, No respiratory distress Cardiac/Chest: regular rate, rhythm, systolic murmur, No diastolic murmur Abdomen: normal bowel sounds, non-tender, soft, No hepatomegaly, No splenomegaly Back: Normal inspection Skin: normal color, warm/dry, No cyanosis Extremities: swelling (decreased, legs less tense) Neuro/Psych: no motor/sensory deficits, alert, normal mood/affect, oriented x 3 ICD10 Worksheet Patient Problems: Problems Problem Status Onset Hypoxemia Acute Peripheral edema Acute Shortness of breath Acute Troponin level elevated Acute
[2017-01-21] MEDS: POTASSIUM CL 20 MEQ TAB PO SCH ×2 (08:55→20:37)
--- NOTE | 2017-01-21 10:07 | PDCARPN ---
Cardiology Progress Note Chief Complaint: No active cardiovascular complaints Assessment/Plan: Assessment: Patient is a 61 y/o female with history of HTN, CHF (HFpEF), stage IV CRI ( followed by nephrology), DM (on insulin), and obesity, who presented to [facility] with complaints of dyspnea. Work up suggestive of CHF exacerbation. Recent lengthy admission to hospital in [place] with uncertain cardiovascular work up ( ? stress testing and/or angiography). Today, the patient reports that she is feeling well. No active cardiovascular complaints at present, but she did note some "fluttering" last night, and oxygen was resumed. No complaints of chest pains or pressure. Lower extremity swelling has improved (per patient reports) . Weight is down about 10 pounds since admission. Nephrology continues to follow this patient closely. Plan: (1) We need to get the outside hospital records to determine what CV work up has been completed (2) Would continue therapy on Coreg (uptitrated), Losartan, and Amlodipine - blood pressure not at goal at present, but certainly better than that noted at the time of admission (3) Aggressive DM therapy continues (4) Lasix therapy should continue as at present (5) Will continue to follow this patient Subjective: No CV complaints Reviewed/Discussed With: multidisciplinary team Objective: Vital Signs (8 Hrs) Temp Pulse Resp BP Pulse Ox 01/21/17 08: 167/87 H 01/21/17 08:16 80 167/87 H 01/21/17 08:00 36.7 C 92 25 H 167/87 H 100 01/21/17 05:39 170/89 H 01/21/17 04:00 36.7 C 82 16 170/89 H 100 Intake/Output (24 Hrs) 01/20/17 01/21/17 01/22/17 05:59 05:59 05:59 Intake Total 2145 1020 Output Total 3000 3550 700 Balance -819 -4348 -700 Intake: Oral (ml) 2145 1020 Output: Urine (ml) 3000 3550 700 Bedside Commode 3000 3550 700 Other: Weight 110.6 kg 109.3 kg Intake Quantity Yes Sufficient Number of Voids Bedside Commode 2 Result Diagrams: 01/20/17 04:19 01/21/17 04:41 Cardiac Labs: Cardiac Lab Results (72 Hrs) 01/18/17 01/18/17 21:57 16:59 Troponin I 0.045 H 0.038 H Telemetry: Normal sinus rhythm - Physical Exam Constitutional: WDWN, healthy appearing, no apparent distress, obese Eyes: PERRL Ears, Nose, Mouth, Throat: moist mucous membranes Cardiovascular: regular rate and rhythm, no murmurs, no rubs Peripheral Pulses: 2+: dorsalis-pedis (R), dorsalis-pedis (L) Respiratory: clear to auscultate bilat, no crackles, no wheezes Gastrointestinal: normoactive bowel sounds Skin: no edema Musculoskeletal: no muscular tenderness Neurologic: AAOx3, CN II-XII grossly intact Psychiatric: cooperative, interactive, following commands ICD10 Worksheet Patient Problems: Problems Problem Status Onset Hypoxemia Acute Peripheral edema Acute Shortness of breath Acute Troponin level elevated Acute
--- NOTE | 2017-01-21 13:18 | HOSPPROG ---
Hospitalist Progress Note Assessment/Plan: Acute heart failure - Echo shows preserved EF, diastolic dysfunction and mod Diuresing slowly, net neg 5L, weight down 3 kg since arrival. Minimal trop elevation likely strain in setting of acute HF. She is chest pain free. EKG non-ischemic. -cont diuresis with IV Lasix, may be ready to change to po tomorrow -follow I&O's, daily weights -cardiology following Hypertension - BP 190/100's on arrival, improved to 150's/80's. Takes Labetalol , Norvasc as outpt. Apparently got a Rx from sales representative [employer] for Losartan, but hasn't started it yet. -changed Labetalol to Coreg, up-titrated to 25 mg BID -up-titrated Losartan to 50 mg daily, follow Cr, lytes -Cont Norvasc -prn hydralazine -d/c nitropaste and favor up-titration of above meds as needed for BP control CKD stage 4 -baseline Cr is 3-3.5. Suspect secondary to diabetic nephropathy. Cr down a bit with diuresis. She is followed by nephrology at [facility] in [place], will likely change care to [facility] since she lives at [facility] now. Renal workup at [facility] 11/2016 included bland urine sediment, atrophic kidneys on renal u/s without hydro, and nephrotic range proteinuria. UA with 3+ protein here. Case discussed with Dr. Chaudhary, nephrology. -monitor Cr closely with diuresis -restricted LUE for possible dialysis needs in future -avoid nephrotoxic agents LE edema likely secondary to HF though query of kidney disease / proteinuria is playing a role - U/S neg for DVT. Hypokalemia in setting of diuresis - replace with oral K, follow closely with new ARB on board DM type 2 - bg 318 on arrival. A1c 7.5, though bg's remain in 200's here -up-titrate lantus and lispro insulin Anemia of CKD - Had neg EGD/c-scope at [facility], hgb stable. No e/o bleeding. -epo per renal Schizoprenia - mood stable. Followed by Dr. Coombs -cont abililinwood and thor Full code DVT PPLX - Heparin Dispo - cont inpt. Subjective: Pt feels better every day. Breathing improved. Decreased feeling of swelling in the LE's, though still edematous. No CP or SOB. Eating well. Excellent UOP. Objective: Vital Signs Temp Pulse Resp BP Pulse Ox 36.7 C 112 H 22 H 159/85 H 95 01/21/17 13:11 01/21/17 13:11 01/21/17 12:00 01/21/17 12:00 01/21/17 13:11 Laboratory Results 01/20/17 04:19 01/21/17 04:41 01/20/17 01/21/17 01/22/17 05:59 05:59 05:59 Intake Total 2145 1020 Output Total 3000 3550 700 Balance -055 -0693 -700 - Physical Exam Constitutional: no apparent distress Eyes: PERRL Ears, Nose, Mouth, Throat: moist mucous membranes Cardiovascular: regular rate and rhythym Respiratory: no respiratory distress, clear to auscultation Gastrointestinal: normoactive bowel sounds, soft, non-tender abdomen Skin: warm Musculoskeletal: other (2+ LE edema) Neurologic: AAOx3 Psychiatric: interacting appropriately ICD10 Worksheet Patient Problems: Problems Problem Status Onset Chronic Disease Mgmt/Transitional Care Acute Hypoxemia Acute Peripheral edema Acute Shortness of breath Acute Troponin level elevated Acute
[2017-01-21] MEDS: INSULIN GLARGINE 100 UNITS/ML SYRINGE SC SCH (20:37)
[2017-01-21] MEDS: ARIPiprazole 10 MG TAB PO SCH (20:37)
[2017-01-21] MEDS: SERTRALINE HCL 50 MG TAB PO SCH (20:37)
[2017-01-22] MEDS: hydrALAZINE 25 MG TAB PO PRN ×2 (05:15→10:19)
[2017-01-22 05:37] LABS: ALBUMIN 2.5 g/dL (3.5-5.0); ANION GAP 6 mEq/L (8-16); CALCIUM 9.3 mg/dL (8.5-10.4); CARBON DIOXIDE 23 mEq/l (22-31); CHLORIDE 109 mEq/L (97-110); CREATININE 3.2 mg/dL (0.6-1.0); GLOMERULAR FILTRATION RATE 15; GLUCOSE 170 mg/dL (70-100); MAGNESIUM 1.8 mg/dL (1.6-2.3); POTASSIUM 3.9 mEq/L (3.5-5.2); SODIUM 138 mEq/L (134-144)
[2017-01-22] MEDS: HEPARIN 5,000 UNIT/0.5 ML SYR SC SCH ×3 (09:12→20:20)
[2017-01-22] MEDS: FUROSEMIDE 20 MG/2 ML VIAL IVP SCH ×2 (09:13→14:23)
[2017-01-22] MEDS: POLYETHYLENE GLYCOL 3350 17 GM PKT PO SCH (09:13)
[2017-01-22] MEDS: LOSARTAN POTASSIUM 25 MG TAB PO SCH (09:13)
[2017-01-22] MEDS: CARVEDILOL 25 MG TAB PO SCH ×2 (09:15→16:45)
[2017-01-22] MEDS: FERROUS SULFATE 325 MG TAB PO SCH (09:15)
[2017-01-22] MEDS: POTASSIUM CL 20 MEQ TAB PO SCH ×2 (09:15→20:20)
[2017-01-22] MEDS: INSULIN LISPRO 100 UNIT/ML SC SCH ×8 (09:29→21:28)
--- NOTE | 2017-01-22 10:32 | PDCARPN ---
Cardiology Progress Note Chief Complaint: No cardiovascular complaints this morning. Good sleep overnight. Assessment/Plan: Assessment: 01-22-17 No cardiovascular complaints were voiced this morning. Patient slept well overnight. Blood pressures continue to be elevated beyond desired goal with current scheduled therapy. Weights are down another kilogram today (from yesterday). Renal function is unchanged in comparison to yesterday (Cr at 3.2) . Review of the information sent from outside hospital (to date) continues to lack useful cardiovascular testing (no MPI, echo, cath). Will resend this request today. We very much need to have some idea of what testing was performed, and what results were noted. 01-21-17 Patient is a 61 y/o female with history of HTN, CHF (HFpEF), stage IV CRI ( followed by nephrology), DM (on insulin), and obesity, who presented to [facility] with complaints of dyspnea. Work up suggestive of CHF exacerbation. Recent lengthy admission to hospital in [place] with uncertain cardiovascular work up ( ? stress testing and/or angiography). Today, the patient reports that she is feeling well. No active cardiovascular complaints at present, but she did note some "fluttering" last night, and oxygen was resumed. No complaints of chest pains or pressure. Lower extremity swelling has improved (per patient reports) . Weight is down about 10 pounds since admission. Nephrology continues to follow this patient closely. Plan: (1) Outside records of any cardiovascular testing is needed - if we are unable to get these records, would consider further CV testing while the patient is in house here (2) Continue Coreg, Cozaar, and norvasc, and given the elevated pressures that are being noted at present, would add Hydralazine (3) DM therapy to continue aggressively (4) Lasix to continue as at present, and as per nephrology (5) We will continue to follow this patient Subjective: No cardiovascular complaints Reviewed/Discussed With: hospitalist, multidisciplinary team Objective: Vital Signs (8 Hrs) Temp Pulse Resp BP Pulse Ox 01/22/17 07:29 36.7 C 82 14 178/92 H 96 01/22/17 04:00 36.7 C 80 16 188/97 H 99 Intake/Output (24 Hrs) 01/21/17 01/22/17 01/23/17 05:59 05:59 05:59 Intake Total 1020 740 Output Total 3550 2200 Balance -2530 -1460 Intake: Oral (ml) 1020 740 Output: Urine (ml) 3550 2200 Bedside Commode 3550 2200 Other: Weight 109.3 kg 108.2 kg Intake Quantity Yes Sufficient Number of Voids Bedside Commode 2 1 Result Diagrams: 01/20/17 04:19 01/22/17 05:01 Telemetry: normal sinus rhythm at 75 bpm - Physical Exam Constitutional: WDWN, healthy appearing, no apparent distress, obese Eyes: PERRL, EOMI Ears, Nose, Mouth, Throat: moist mucous membranes Cardiovascular: regular rate and rhythm, no murmurs, pulses symmetric bilat Peripheral Pulses: 2+: dorsalis-pedis (R), dorsalis-pedis (L) Respiratory: clear to auscultate bilat, no crackles, no wheezes Gastrointestinal: normoactive bowel sounds Skin: no rashes, no edema Musculoskeletal: no muscular tenderness Neurologic: AAOx3, CN II-XII grossly intact Psychiatric: cooperative, interactive, following commands ICD10 Worksheet Patient Problems: Problems Problem Status Onset Chronic Disease [facility]/Transitional Care Acute Hypoxemia Acute Peripheral edema Acute Shortness of breath Acute Troponin level elevated Acute
--- NOTE | 2017-01-22 10:53 | HOSPPROG ---
Hospitalist Progress Note Assessment/Plan: Acute heart failure - Echo shows preserved EF, diastolic dysfunction and mod Diuresing slowly, net neg 6L, weight down 4 kg since arrival. Minimal trop elevation likely strain in setting of acute HF. She is chest pain free. EKG non-ischemic. No recent cardiac risk stratification at [facility], [facility] or [facility], discussed with cards. -cont diuresis with IV Lasix, may be ready to change to po in 1-2 days -lexiscan in am -discussed possible need for LHC with renal, who felt diagnostic cath with low contrast would be safe -follow I&O's, daily weights Hypertension - BP 190/100's on arrival, improved to 160's/90's, still sub- optimally controlled. Takes Labetalol, Norvasc as outpt. 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 -changed Labetalol to Coreg, up-titrated to 25 mg BID -up-titrated Losartan to 50 mg daily, following Cr, lytes closely -Cont Norvasc at 10 mg daily -will schedule hydralazine at 25 mg TID, up-titrate as indicated CKD stage 4 -baseline Cr is 3-3.5. Suspect secondary to diabetic nephropathy. She is followed by nephrology at [facility] in [place], will likely change care to [facility] since she lives at [facility] now. Renal workup at [facility] 11/2016 included bland urine sediment, atrophic kidneys on renal u/s without hydro, and nephrotic range proteinuria. UA with 3+ protein here. Case discussed with nephrology. -monitor Cr closely with diuresis -restricted LUE for possible dialysis needs in future -avoid nephrotoxic agents LE edema likely secondary to HF though if query kidney disease / proteinuria and possibly Norvasc is playing a role - U/S neg for DVT. Improving finally with diuresis. Hypokalemia in setting of diuresis - normalized with aggressive replacement. Cont K supplements DM type 2 - bg 318 on arrival. A1c 7.5, though bg's remain in 200's here -cont to up-titrate lantus and lispro insulin Anemia of CKD - Had neg EGD/c-scope at [facility], hgb stable. No e/o bleeding. -epo per renal Schizoprenia - mood stable. Followed by Dr. Coombs -maday bond and thor Full code DVT PPLX - Heparin Dispo - cont inpt. Subjective: Pt feels well. Denies CP or SOB. She is very pleased with the improvement in her symptoms. Decreased LE swelling. Breathing improved. No complaints. Objective: Vital Signs Temp Pulse Resp BP Pulse Ox 36.7 C 82 14 169/92 H 96 01/22/17 07:29 01/22/17 07:29 01/22/17 07:29 01/22/17 10:19 01/22/17 07:29 Laboratory Results 01/20/17 04:19 01/22/17 05:01 01/21/17 01/22/17 01/23/17 05:59 05:59 05:59 Intake Total 1020 740 700 Output Total 3550 2200 Balance -2530 -1460 700 - Physical Exam Constitutional: no apparent distress Eyes: PERRL Ears, Nose, Mouth, Throat: moist mucous membranes Cardiovascular: regular rate and rhythym Respiratory: no respiratory distress, clear to auscultation Gastrointestinal: normoactive bowel sounds, soft, non-tender abdomen Skin: warm Musculoskeletal: full muscle strength, other (1+ b/l LE edema) Neurologic: AAOx3 Psychiatric: interacting appropriately ICD10 Worksheet Patient Problems: Problems Problem Status Onset Chronic Disease Mgmt/Transitional Care Acute Hypoxemia Acute Peripheral edema Acute Shortness of breath Acute Troponin level elevated Acute
[2017-01-22] MEDS ORDERED: D50W 25 GM/50 ML SYR IVP PRN (11:00)
--- NOTE | 2017-01-22 11:46 | SOAPPROG ---
SOAP Progress Note Assessment/Plan: Assessment: 1. Cardiac Pt has heart failure with preserved ejection fraction. Her volume status remains increased, although she is diuresing well. She may need revascularization. She is undergoing evaluation relating to this. 2. Renal She has advanced proteinuric CKD. I reviewed issues with her. She was restarted on ARB. She likely has significant small vessel disease, and we will need to follow her Cr closely, especially in the light of ongoing diuresis. 3. HTN This is still poorly controlled. We will follow with ongoing diuresis, and schedule hydralazine 4. Sodium restriction I had a long talk with her relating to this. Plan: 01/22/17 11:36 Subjective: Feeling pretty good. Objective: Vital Signs Temp Pulse Resp BP Pulse Ox 36.7 C 81 14 168/87 H 96 01/22/17 07:29 01/22/17 10:55 01/22/17 07:29 01/22/17 10:55 01/22/17 07:29 Laboratory Results 01/20/17 04:19 01/22/17 05:01 01/21/17 01/22/17 01/23/17 05:59 05:59 05:59 Intake Total 1020 740 700 Output Total 3550 2200 Balance -2530 -1460 700 Physical Exam - Physical Exam General Appearance: no apparent distress Respiratory: other (bronchial BS in both bases) Cardiac/Chest: regular rate, rhythm Extremities: pedal edema (1+ bilat) Neuro/Psych: oriented x 3 ICD10 Worksheet Patient Problems: Problems Problem Status Onset Chronic Disease Mgmt/Transitional Care Acute Hypoxemia Acute Peripheral edema Acute Shortness of breath Acute Troponin level elevated Acute
--- NOTE | 2017-01-22 14:26 | ASMTCMCOM ---
CM Note CM Note Notes: Spoke w/ RN, reviewed chart; pt requires ongoing diuresis; pt will be followed by transitional care at time of d/c; plan of care remains unchanged; anticipate d/c to [facility] when medically stable. CM to follow. Date Signed: 01/22/2017 02:26 PM Electronically Signed By:Janee Trinidad
[2017-01-22] MEDS: hydrALAZINE 25 MG TAB PO SCH ×2 (16:10→20:21)
[2017-01-22] MEDS: INSULIN GLARGINE 100 UNITS/ML SYRINGE SC SCH (20:19)
[2017-01-22] MEDS: ARIPiprazole 10 MG TAB PO SCH (20:20)
[2017-01-22] MEDS: SERTRALINE HCL 50 MG TAB PO SCH (20:21)
[2017-01-23] MEDS: HEPARIN 5,000 UNIT/0.5 ML SYR SC SCH ×3 (05:12→21:32)
[2017-01-23 05:52] LABS: ALBUMIN 2.5 g/dL (3.5-5.0); ANION GAP 5 mEq/L (8-16); CALCIUM 9.5 mg/dL (8.5-10.4); CARBON DIOXIDE 23 mEq/l (22-31); CHLORIDE 109 mEq/L (97-110); CREATININE 3.4 mg/dL (0.6-1.0); GLOMERULAR FILTRATION RATE 14; GLUCOSE 103 mg/dL (70-100); MAGNESIUM 1.9 mg/dL (1.6-2.3); POTASSIUM 4.5 mEq/L (3.5-5.2); SODIUM 137 mEq/L (134-144)
[2017-01-23] MEDS: CARVEDILOL 25 MG TAB PO SCH ×2 (09:28→18:47)
[2017-01-23] MEDS: FERROUS SULFATE 325 MG TAB PO SCH (09:28)
[2017-01-23] MEDS: LOSARTAN POTASSIUM 25 MG TAB PO SCH (09:29)
[2017-01-23] MEDS: hydrALAZINE 25 MG TAB PO SCH ×3 (09:29→21:30)
[2017-01-23] MEDS: FUROSEMIDE 20 MG/2 ML VIAL IVP SCH ×2 (09:32→14:32)
[2017-01-23] MEDS: INSULIN LISPRO 100 UNIT/ML SC SCH ×7 (09:34→21:48)
[2017-01-23] MEDS ORDERED: REGADENOSON 0.4 MG/5 ML SYR IVP ONE (10:08)
[2017-01-23] MEDS ORDERED: NYSTATIN POWDER 15 GM BTL TP SCH (10:48)
--- NOTE | 2017-01-23 12:07 | CPR ---
[f rep st] NONINVASIVE CARDIAC PROCEDURE REPORT DATE OF PROCEDURE: 01/23/2017 PROCEDURE PERFORMED: Nuclear Lexiscan stress test. REASON FOR TEST: Chest discomfort. Resting EKG shows a regular sinus rhythm with a rate of 79. She has a 1 mm lift in lead 2, anterose ptal late R-wave progression. Resting blood pressure 169/89, resting heart rate 74, oxygen saturati on 96% on 1 L of oxygen. She is asymptomatic. LEXISCAN PORTION: Lexiscan was injected rapidly, followed by saline flush per protocol. Cardiolite was then injected, followed by saline flush. She did complain of shortness of breath briefly, subs iding within 1 minute. No EKG changes with the injection portion. RECOVERY: She spontaneously recovered with no reoccurring shortness of breath or other symptoms. E KG remained stable with no ischemic changes. Peak heart rate 95, peak blood pressure 154/92 immedia tely after injection. Resting heart rate 94, resting blood pressure 142/80, oxygen saturation 99%. She remained asymptoma tic post test. No EKG changes were noted. At this time, she currently is stable for [employer]. /[id number]/MODL
--- NOTE | 2017-01-23 13:14 | HOSPPROG ---
Hospitalist Progress Note Assessment/Plan: Assessment: 61-year-old female presenting with acute hypertensive emergency resulting in acute diastolic congestive heart failure exacerbation Plan: # Acute diastolic CHF - Echo shows preserved EF, diastolic dysfunction and mod MR, BNP 8500, hypoxic - net neg 1.5L o/n, net neg 4.5kg LOS - d/w Dr. Nixon, he recommends cont IV lasix, cont htn mgmt - monitor UOP, Cr # Hypertensive Emergency - Evidenced by SBP 200s w/ end-organ failure, notably dCHF - nuc stress today w/ fixed defect lateral wall, no ischemia - cont correg 25 bid, losartan 50 daily, norvasc 10 daily, hydralazine 25 tid - SBP trending into 140-150 range this afternoon, cont to monitor for stability # CKD stage 4 - baseline Cr is 3-3.5, suspect secondary to diabetic nephropathy , followed by nephrology at [facility] in [place], will likely change care to [facility] since she lives at [facility] now. Outside records reviewed and include renal workup at [facility] 11/2016 included bland urine sediment, atrophic kidneys on renal u/s without hydro, and nephrotic range proteinuria. UA with 3+ protein here - restrict LUE for possible HD needs in future - significant proteinuria, 10+ g/spot # Hypokalemia - 2/2 diuresis, normalized # DM type 2 - bg 318 on arrival. A1c 7.5, though bg's remain in 200's here - cont lantus and lispro on current doses # Anemia of CKD - Had neg EGD/c-scope at [facility], hgb stable. No e/o bleeding. - epo received, repeat Hgb level tomorrow # Schizoprenia - chronic, mood stable, requires care setting - f/u w/ Dr. Coombs - cont abilify and zoloft Full code DVT PPLX - Heparin Dispo - ADD 01/24 vs. 01/25, remains hypervolemic and requiring IV diuresis High medical complexity, high risk for worsening morbidity and mortality, 2/2 issues outlined above. Subjective: patient reports loose, then formed, stool, remains short of breath off O2 Objective: Vital Signs Temp Pulse Resp BP Pulse Ox 36.7 C 83 16 147/79 H 99 01/23/17 11:34 01/23/17 11:34 01/23/17 11:34 01/23/17 11:34 01/23/17 11:34 Laboratory Results 01/20/17 04:19 01/23/17 04:36 01/22/17 01/23/17 01/24/17 05:59 05:59 05:59 Intake Total 740 1100 Output Total 2200 2600 400 Balance -1460 -1500 -400 - Pending Discharge Pending Discharge Within 48 Hours: Yes Pending Discharge Date: 01/25/17 Pending Discharge Time: 11:00 - Physical Exam Constitutional: no apparent distress, not in pain, obese, No uncomfortable Cardiovascular: regular rate and rhythym, systolic murmur (II/ at all valves) , edema (1+ bilat LE), No irregularly irregular, No tachycardia Respiratory: inspiratory crackles (faint in bases), No reduced air movement, No expiratory wheeze, No bronchial breath sounds, No respiratory distress Gastrointestinal: normoactive bowel sounds, soft, non-tender abdomen, no palpable masses, distension (obese) Neurologic: AAOx3, sensation intact bilaterally Psychiatric: interacting appropriately, not anxious, not encephalopathic, thought process linear ICD10 Worksheet Patient Problems: Problems Problem Status Onset Chronic Disease Mgmt/Transitional Care Acute Peripheral edema Acute Hypoxemia Acute Shortness of breath Acute Troponin level elevated Acute
--- NOTE | 2017-01-23 13:16 | SOAPPROG ---
SOREBECCA Progress Note Assessment/Plan: Assessment: 1. 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 >10 g proteinuria. Creat fairly stable with diuresis, addition of ARB. 3.4 today. Needs to contact our office for f/u as outpatient. Has our card. 2. CHF. Preserved EF. Diuresing. Stress test done today. Lasix per cards. 3. HTN. BP elevated. Continue diuresis. On losartan 50mg. Hydralazine added. May also be able to uptitrate ARB when closer to euvolemia. Plan: 01/23/17 13:14 01/23/17 13:16 Subjective: Swelling in legs much better. Went for lexiscan stress test this am. Objective: Vital Signs Temp Pulse Resp BP Pulse Ox 36.7 C 83 16 147/79 H 99 01/23/17 11:34 01/23/17 11:34 01/23/17 11:34 01/23/17 11:34 01/23/17 11:34 Laboratory Results 01/20/17 04:19 01/23/17 04:36 01/22/17 01/23/17 01/24/17 05:59 05:59 05:59 Intake Total 740 1100 Output Total 2200 2600 400 Balance -1460 -1500 -400 RRR, no m/g/r; no JVD CTAB Abdom soft, nontender 2+ LE pitting edema ICD10 Worksheet Patient Problems: Problems Problem Status Onset Chronic Disease [facility]/Transitional Care Acute Peripheral edema Acute Hypoxemia Acute Shortness of breath Acute Troponin level elevated Acute
--- NOTE | 2017-01-23 15:19 | PDCARPN ---
Cardiology Progress Note Chief Complaint: No cardiovascular complaints were voiced this morning. Assessment/Plan: Assessment: 01-23-17 No cardiovascular complaints. Stress testing was performed today with normal left ventricular systolic ejection fraction noted. There appeared to be a lateral wall fixed defect with associated hypokinesis. Patient is without symptoms. Normal LVEF noted. No reversibility. Ongoing medical management of HTN. Ongoing outpatient follow up with nephrology. Weights continue to trend down as well as documentation of negative fluid balance. 01-22-17 No cardiovascular complaints were voiced this morning. Patient slept well overnight. Blood pressures continue to be elevated beyond desired goal with current scheduled therapy. Weights are down another kilogram today (from yesterday). Renal function is unchanged in comparison to yesterday (Cr at 3.2) . Review of the information sent from outside hospital (to date) continues to lack useful cardiovascular testing (no MPI, echo, cath). Will resend this request today. We very much need to have some idea of what testing was performed, and what results were noted. 01-21-17 Patient is a 61 y/o female with history of HTN, CHF (HFpEF), stage IV CRI ( followed by nephrology), DM (on insulin), and obesity, who presented to [facility] with complaints of dyspnea. Work up suggestive of CHF exacerbation. Recent lengthy admission to hospital in [place] with uncertain cardiovascular work up ( ? stress testing and/or angiography). Today, the patient reports that she is feeling well. No active cardiovascular complaints at present, but she did note some "fluttering" last night, and oxygen was resumed. No complaints of chest pains or pressure. Lower extremity swelling has improved (per patient reports) . Weight is down about 10 pounds since admission. Nephrology continues to follow this patient closely. Plan: (1) Would refrain from invasive left heart catheterization given (a) lack of symptoms, (b) renal dysfunction, (c) lack of reversibility on MPI, and (d) preserved LVEF - consideration for more invasive testing with symptoms (2) Outpatient follow up with cardiology is recommended (3) Continue therapy on Coreg, Norvasc, and Cozaar (with plan to uptitrate the Cozaar as further diuresis is accomplished) - Hydralazine to be uses as needed for better blood pressure control (4) Continue lasix therapy as at present - monitor weights, renal function, and urine output (5) Aggressive DM control to continue. (6) We will continue to follow this patient (7) Would consider CT rule out PE or V/Q scan to further rule out PD given the elevation in d-dimer that was noted. Subjective: No complaints Reviewed/Discussed With: hospitalist, multidisciplinary team Objective: Vital Signs (8 Hrs) Temp Pulse Resp BP Pulse Ox 01/23/17 12:40 94 01/23/17 11:34 36.7 C 83 16 147/79 H 99 01/23/17 07:29 36.7 C 82 16 163/91 H 98 Intake/Output (24 Hrs) 01/22/17 01/23/17 01/24/17 05:59 05:59 05:59 Intake Total 740 1100 Output Total 2200 2600 400 Balance -1460 -1500 -400 Intake: Oral (ml) 740 1100 Output: Urine (ml) 2200 2600 400 Bedside Commode 2200 2600 400 Other: Weight 108.2 kg 108.1 kg Number of Voids Bedside Commode 1 1 Toilet 1 Number of Stools Bedside Commode 2 Toilet 1 Result Diagrams: 01/20/17 04:19 01/23/17 04:36 Telemetry: normal sinus rhythm - Physical Exam Constitutional: WDWN, no apparent distress, obese Eyes: PERRL Ears, Nose, Mouth, Throat: moist mucous membranes Cardiovascular: regular rate and rhythm, no murmurs, no rubs, no gallops Peripheral Pulses: 2+: dorsalis-pedis (R), dorsalis-pedis (L) Respiratory: clear to auscultate bilat, reduced air movement Gastrointestinal: normoactive bowel sounds Skin: no rashes, other (trace LE edema) Musculoskeletal: no muscular tenderness Neurologic: AAOx3, CN II-XII grossly intact Psychiatric: cooperative, interactive, following commands ICD10 Worksheet Patient Problems: Problems Problem Status Onset Chronic Disease Mgmt/Transitional Care Acute Hypoxemia Acute Peripheral edema Acute Shortness of breath Acute Troponin level elevated Acute
[2017-01-23] MEDS: INSULIN GLARGINE 100 UNITS/ML SYRINGE SC SCH (21:30)
[2017-01-23] MEDS: SERTRALINE HCL 50 MG TAB PO SCH (21:31)
[2017-01-23] MEDS: ARIPiprazole 10 MG TAB PO SCH (21:32)
[2017-01-24 05:13] LABS: HEMATOCRIT 26.4 % (38.0-47.0); HEMOGLOBIN 8.3 g/dL (12.6-16.3)
[2017-01-24 05:33] LABS: ALBUMIN 2.5 g/dL (3.5-5.0); ANION GAP 6 mEq/L (8-16); CALCIUM 9.6 mg/dL (8.5-10.4); CARBON DIOXIDE 24 mEq/l (22-31); CHLORIDE 107 mEq/L (97-110); CREATININE 3.4 mg/dL (0.6-1.0); GLOMERULAR FILTRATION RATE 14; GLUCOSE 148 mg/dL (70-100); SODIUM 137 mEq/L (134-144)
[2017-01-24] MEDS: HEPARIN 5,000 UNIT/0.5 ML SYR SC SCH ×3 (06:05→21:09)
[2017-01-24] MEDS: INSULIN LISPRO 100 UNIT/ML SC SCH ×7 (08:34→21:19)
[2017-01-24] MEDS: FUROSEMIDE 20 MG/2 ML VIAL IVP SCH (08:35)
[2017-01-24] MEDS: hydrALAZINE 25 MG TAB PO SCH (08:45)
[2017-01-24] MEDS: LOSARTAN POTASSIUM 25 MG TAB PO SCH (08:45)
[2017-01-24] MEDS: FERROUS SULFATE 325 MG TAB PO SCH (08:45)
[2017-01-24] MEDS: CARVEDILOL 25 MG TAB PO SCH ×2 (08:46→17:21)
[2017-01-24] MEDS: POLYETHYLENE GLYCOL 3350 17 GM PKT PO SCH (08:47)
--- NOTE | 2017-01-24 10:40 | SOAPPROG ---
SOAP Progress Note Assessment/Plan: Assessment: 1. Cardiac Pt has heart failure with preserved ejection fraction. Recent diuresis has slowed (although on lower diuretic dose). Volume status better. Convert to oral furosemide. May need MWF metolazone. 2. Renal She has advanced proteinuric CKD. I reviewed issues with her. She was restarted on ARB. She likely has significant small vessel disease, and we will need to follow her Cr closely, especially in the light of ongoing diuresis. 3. HTN Reviewed with cards. Will increase hydralazine. Consider further increase in beta verito. 4. Reviewed dialysis access with her. Will consult Dr. Beebe for initial evaluation relating to this. 01/24/17 11:04 01/24/17 11:05 Subjective: doing better Objective: Vital Signs Temp Pulse Resp BP Pulse Ox 36.7 C 78 16 163/88 H 98 01/24/17 04:30 01/24/17 08:46 01/24/17 07:41 01/24/17 08:46 01/24/17 07:41 Laboratory Results 01/24/17 04:04 01/24/17 04:04 01/23/17 01/24/17 01/25/17 05:59 05:59 05:59 Intake Total 1100 2200 240 Output Total 2600 1850 350 Balance -1500 350 -110 Physical Exam - Physical Exam General Appearance: no apparent distress Respiratory: lungs clear Cardiac/Chest: regular rate, rhythm Extremities: pedal edema Neuro/Psych: oriented x 3 ICD10 Worksheet Patient Problems: Problems Problem Status Onset Chronic Disease Mgmt/Transitional Care Acute Hypoxemia Acute Peripheral edema Acute Shortness of breath Acute Troponin level elevated Acute
--- NOTE | 2017-01-24 11:23 | PDCARPN ---
Cardiology Progress Note Chief Complaint: No cardiovascular complaints today Assessment/Plan: Assessment: 01-24-17 No cardiovascular complaints. Blood pressure continues to be elevated. Nephrology with question about medication titration option. At present, coreg, amlodpine, cozaar, and hydralazine are being taken, but blood pressure elevation continues to be noted. Weight is down about 7 kilos from admission. Ongoing work to drive blood pressure down. Hydralazine is now scheduled, but blood pressure continues to be elevated beyond acceptable. Stress testing yesterday without reversibility. 01-23-17 No cardiovascular complaints. Stress testing was performed today with normal left ventricular systolic ejection fraction noted. There appeared to be a lateral wall fixed defect with associated hypokinesis. Patient is without symptoms. Normal LVEF noted. No reversibility. Ongoing medical management of HTN. Ongoing outpatient follow up with nephrology. Weights continue to trend down as well as documentation of negative fluid balance. 01-22-17 No cardiovascular complaints were voiced this morning. Patient slept well overnight. Blood pressures continue to be elevated beyond desired goal with current scheduled therapy. Weights are down another kilogram today (from yesterday). Renal function is unchanged in comparison to yesterday (Cr at 3.2) . Review of the information sent from outside hospital (to date) continues to lack useful cardiovascular testing (no MPI, echo, cath). Will resend this request today. We very much need to have some idea of what testing was performed, and what results were noted. 01-21-17 Patient is a 61 y/o female with history of HTN, CHF (HFpEF), stage IV CRI ( followed by nephrology), DM (on insulin), and obesity, who presented to [facility] with complaints of dyspnea. Work up suggestive of CHF exacerbation. Recent lengthy admission to hospital in [place] with uncertain cardiovascular work up ( ? stress testing and/or angiography). Today, the patient reports that she is feeling well. No active cardiovascular complaints at present, but she did note some "fluttering" last night, and oxygen was resumed. No complaints of chest pains or pressure. Lower extremity swelling has improved (per patient reports) . Weight is down about 10 pounds since admission. Nephrology continues to follow this patient closely. Plan: (1) Uptitration of hydralazine (to 50 mg three times per day) and continue Coreg, Amlodipine, and Cozaar as at present (2) Lasix to continue (3) DM therapy to continue (4) Outpatient follow up with cardiology is recommended Subjective: Patient doing well today. No complaints Reviewed/Discussed With: hospitalist, multidisciplinary team Objective: Vital Signs (8 Hrs) Temp Pulse Resp BP Pulse Ox 01/24/17 08:46 78 163/88 H 01/24/17 08:45 163/88 H 01/24/17 08:44 163/88 H 01/24/17 07:41 16 163/88 H 98 01/24/17 04:30 36.7 C 90 18 175/88 H 96 01/24/17 04:00 36.6 C 90 16 175/88 H 96 Intake/Output (24 Hrs) 01/23/17 01/24/17 01/25/17 05:59 05:59 05:59 Intake Total 1100 2200 240 Output Total 2600 1850 350 Balance -1500 350 -110 Intake: Oral (ml) 1100 2200 240 Output: Urine (ml) 2600 1850 350 Bedside Commode 2600 1200 Toilet 650 350 Other: Weight 108.1 kg 107 kg Intake Quantity Yes Yes Sufficient Number of Voids Bedside Commode 1 Toilet 2 1 Number of Stools Bedside Commode 2 Toilet 1 Result Diagrams: 01/24/17 04:04 01/24/17 04:04 Telemetry: normal sinus - Physical Exam Constitutional: WDWN, no apparent distress, obese Eyes: PERRL Ears, Nose, Mouth, Throat: moist mucous membranes Cardiovascular: regular rate and rhythm, no murmurs, No jugular vein distention Peripheral Pulses: 2+: dorsalis-pedis (R), dorsalis-pedis (L) Respiratory: clear to auscultate bilat, no crackles, no wheezes Skin: no edema Musculoskeletal: no muscular tenderness Neurologic: AAOx3, CN II-XII grossly intact Psychiatric: cooperative, interactive, following commands ICD10 Worksheet Patient Problems: Problems Problem Status Onset Chronic Disease Mgmt/Transitional Care Acute Hypoxemia Acute Peripheral edema Acute Shortness of breath Acute Troponin level elevated Acute
--- NOTE | 2017-01-24 13:40 | HOSPPROG ---
Hospitalist Progress Note Assessment/Plan: Assessment: 61-year-old female presenting with acute hypertensive emergency resulting in acute diastolic congestive heart failure exacerbation Plan: # Acute diastolic CHF - Echo shows preserved EF, diastolic dysfunction and mod MR, BNP 8500, hypoxic - net even o/n, net neg 5.5kg LOS - monitor UOP, Cr - adjust lasix to 80mg PO 2xd today, gauge effect over next 24hrs - room air challenge # Hypertensive Emergency - Evidenced by SBP 200s w/ end-organ failure, notably dCHF - nuc stress today w/ fixed defect lateral wall, no ischemia - cont correg 25 bid, losartan 50 daily, norvasc 10 daily, increase hydralazine 50 tid - SBP 160-170s today # CKD stage 4 - baseline Cr is 3-3.5, suspect secondary to diabetic nephropathy , followed by nephrology at [facility] in [place], will likely change care to [facility] since she lives at [facility] now - per Dr. York, will get access eval prior to DC given impending HD needs # Hypokalemia - 2/2 diuresis, normalized # DM type 2 - bg 318 on arrival. A1c 7.5, though bg's remain in 200's here - cont lantus and lispro on current doses # Anemia of CKD - Had neg EGD/c-scope at [facility], hgb stable. No e/o bleeding. - epo received, Hgb 8.3 # Schizoprenia - chronic, mood stable, requires care setting - f/u w/ Dr. Coombs - cont abilify and zoloft Full code DVT PPLX - Heparin Dispo - ADD 01/25, requires trial of PO lasix prior to DC High medical complexity, high risk for worsening morbidity and mortality, 2/2 issues outlined above. Subjective: reports she gets SOB w/ ambulating to door Objective: Vital Signs Temp Pulse Resp BP Pulse Ox 36.7 C 76 16 163/89 H 94 01/24/17 04:30 01/24/17 11:19 01/24/17 11:19 01/24/17 11:19 01/24/17 12:19 Laboratory Results 01/24/17 04:04 01/24/17 04:04 01/23/17 01/24/17 01/25/17 05:59 05:59 05:59 Intake Total 1100 2200 240 Output Total 2600 1850 350 Balance -1500 350 -110 - Pending Discharge Pending Discharge Within 24 Hours: Yes Pending Discharge Date: 01/25/17 Pending Discharge Time: 11:00 - Physical Exam Constitutional: no apparent distress, not in pain, obese, No uncomfortable Cardiovascular: systolic murmur (II/ all valves), edema (trace bilat LE), No irregularly irregular, No tachycardia Respiratory: inspiratory crackles (faint in bases), No reduced air movement, No expiratory wheeze, No bronchial breath sounds Gastrointestinal: normoactive bowel sounds, soft, non-tender abdomen, no palpable masses Neurologic: AAOx3, sensation intact bilaterally, No weakness Psychiatric: interacting appropriately, not anxious, not encephalopathic, thought process linear ICD10 Worksheet Patient Problems: Problems Problem Status Onset Chronic Disease [facility]/Transitional Care Acute Peripheral edema Acute Hypoxemia Acute Shortness of breath Acute Troponin level elevated Acute
--- NOTE | 2017-01-24 20:54 | SOAPPROG ---
NICHOLAS Progress Note Assessment/Plan: Assessment: 61-YEAR-OLD FEMALE WITH DIABETES AND CHRONIC RENAL FAILURE IN NEED OF AV FISTULA. HEENT WITHOUT BRUITS OR ICTERUS OR ADENOPATHY CHEST CLEAR COR REGULAR RHYTHM EXTREMITIES REVEAL FULL PULSES BUT SHE HAS VERY POOR OF VENOUS CHOICES ON HER LEFT ARM WELL A RIGHT ARM RISKS AND OPTIONS BEEN FULLY DISCUSSED THE PATIENT Plan: RE-EVALUATE LEFT ARM WITH ULTRASOUND/SHE MAY BE BETTER OFF WITH A AV GRAFT RATHER THAN AN AV FISTULA/DISCUSSED WITH DR. FORREST 01/24/17 20:53 Objective: Vital Signs Temp Pulse Resp BP Pulse Ox 36.8 C 86 16 152/77 H 94 01/24/17 19:47 01/24/17 19:47 01/24/17 19:47 01/24/17 19:47 01/24/17 19:47 Laboratory Results 01/24/17 04:04 01/24/17 04:04 01/23/17 01/24/17 01/25/17 05:59 05:59 05:59 Intake Total 1100 2200 940 Output Total 2600 1850 1999 Balance -1500 350 -1060 ICD10 Worksheet Patient Problems: Problems Problem Status Onset Chronic Disease Mgmt/Transitional Care Acute Hypoxemia Acute Peripheral edema Acute Shortness of breath Acute Troponin level elevated Acute
[2017-01-24] MEDS: ARIPiprazole 10 MG TAB PO SCH (21:05)
[2017-01-24] MEDS: INSULIN GLARGINE 100 UNITS/ML SYRINGE SC SCH (21:09)
[2017-01-24] MEDS: SERTRALINE HCL 50 MG TAB PO SCH (21:10)
[2017-01-25 05:10] LABS: ALBUMIN 2.5 g/dL (3.5-5.0); ANION GAP 5 mEq/L (8-16); CALCIUM 9.7 mg/dL (8.5-10.4); CARBON DIOXIDE 25 mEq/l (22-31); CHLORIDE 107 mEq/L (97-110); CREATININE 3.3 mg/dL (0.6-1.0); GLOMERULAR FILTRATION RATE 14; GLUCOSE 145 mg/dL (70-100); MAGNESIUM 1.9 mg/dL (1.6-2.3); POTASSIUM 3.9 mEq/L (3.5-5.2); SODIUM 137 mEq/L (134-144)
[2017-01-25] MEDS: HEPARIN 5,000 UNIT/0.5 ML SYR SC SCH ×3 (07:12→21:31)
[2017-01-25] MEDS: INSULIN LISPRO 100 UNIT/ML SC SCH ×7 (08:21→21:31)
[2017-01-25] MEDS: FUROSEMIDE 40 MG TAB PO SCH ×3 (08:25→15:59)
[2017-01-25] MEDS: LOSARTAN POTASSIUM 25 MG TAB PO SCH (08:26)
[2017-01-25] MEDS: CARVEDILOL 25 MG TAB PO SCH ×2 (08:26→17:49)
[2017-01-25] MEDS: FERROUS SULFATE 325 MG TAB PO SCH (08:27)
--- NOTE | 2017-01-25 09:21 | PDCARPN ---
Cardiology Progress Note Chief Complaint: No cardiovascular complaints Assessment/Plan: Assessment: 01-25-17 No cardiovascular complaints this morning. Good sleep overnight. Patient with some ambulation in the room, and very limited in the sosa. Blood pressures were noted to be elevated (beyond acceptable yesterday) and uptitration of hydralazine was implemented. Last night (after two doses) there may have been some improvement in pressures noted. Pending ultrasound of the left upper extremity for fistula placement (given the progressive renal failure). No complaints of dizziness or lightheadedness. Nursing staff attempting to find larger cuff. Nephrology with further titration of the Hydralazine to 75 mg TID this morning. 01-24-17 No cardiovascular complaints. Blood pressure continues to be elevated. Nephrology with question about medication titration option. At present, coreg, amlodpine, cozaar, and hydralazine are being taken, but blood pressure elevation continues to be noted. Weight is down about 7 kilos from admission. Ongoing work to drive blood pressure down. Hydralazine is now scheduled, but blood pressure continues to be elevated beyond acceptable. Stress testing yesterday without reversibility. 01-23-17 No cardiovascular complaints. Stress testing was performed today with normal left ventricular systolic ejection fraction noted. There appeared to be a lateral wall fixed defect with associated hypokinesis. Patient is without symptoms. Normal LVEF noted. No reversibility. Ongoing medical management of HTN. Ongoing outpatient follow up with nephrology. Weights continue to trend down as well as documentation of negative fluid balance. 01-22-17 No cardiovascular complaints were voiced this morning. Patient slept well overnight. Blood pressures continue to be elevated beyond desired goal with current scheduled therapy. Weights are down another kilogram today (from yesterday). Renal function is unchanged in comparison to yesterday (Cr at 3.2) . Review of the information sent from outside hospital (to date) continues to lack useful cardiovascular testing (no MPI, echo, cath). Will resend this request today. We very much need to have some idea of what testing was performed, and what results were noted. 01-21-17 Patient is a 61 y/o female with history of HTN, CHF (HFpEF), stage IV CRI ( followed by nephrology), DM (on insulin), and obesity, who presented to [facility] with complaints of dyspnea. Work up suggestive of CHF exacerbation. Recent lengthy admission to hospital in [place] with uncertain cardiovascular work up ( ? stress testing and/or angiography). Today, the patient reports that she is feeling well. No active cardiovascular complaints at present, but she did note some "fluttering" last night, and oxygen was resumed. No complaints of chest pains or pressure. Lower extremity swelling has improved (per patient reports) . Weight is down about 10 pounds since admission. Nephrology continues to follow this patient closely. Plan: (1) Surgery eval for fistula placement today (2) Hydralazine to 75 mg three time per day (3) Continue lasix (IV) (4) Would attempt to measure blood pressures with larger cuff (width) (5) Ambulation in the halls was encouraged Subjective: No cardiovascular complaints Reviewed/Discussed With: hospitalist, multidisciplinary team Objective: Vital Signs (8 Hrs) Temp Pulse Resp BP Pulse Ox 01/25/17 08:26 120 H 174/92 H 01/25/17 08:25 174/92 H 01/25/17 08:00 36.6 C 120 H 18 174/92 H 91 L 01/25/17 04:00 36.8 C 91 20 182/89 H 93 Intake/Output (24 Hrs) 01/24/17 01/25/17 01/26/17 05:59 05:59 05:59 Intake Total 2200 1040 355 Output Total 1850 2950 900 Balance 350 -1910 -545 Intake: Oral (ml) 2200 1040 355 Output: Urine (ml) 1850 2950 900 Bedside Commode 1200 1300 Toilet 650 1650 900 Other: Weight 107 kg 105.7 kg Intake Quantity Yes Yes Yes Sufficient Number of Voids Bedside Commode 4 Toilet 2 2 Number of Stools Toilet 1 Result Diagrams: 01/24/17 04:04 01/25/17 04:17 Telemetry: normal sinus - Physical Exam Constitutional: WDWN, no apparent distress, obese Eyes: PERRL, EOMI Ears, Nose, Mouth, Throat: moist mucous membranes Cardiovascular: regular rate and rhythm, no murmurs, pulses symmetric bilat, No jugular vein distention Peripheral Pulses: 2+: dorsalis-pedis (R), dorsalis-pedis (L) Respiratory: clear to auscultate bilat, no crackles, no wheezes Skin: no rashes, no edema Musculoskeletal: no muscular tenderness Neurologic: AAOx3, CN II-XII grossly intact Psychiatric: cooperative, interactive, following commands ICD10 Worksheet Patient Problems: Problems Problem Status Onset Chronic Disease Mgmt/Transitional Care Acute Hypoxemia Acute Peripheral edema Acute Shortness of breath Acute Troponin level elevated Acute
[2017-01-25] MEDS ORDERED: hydrALAZINE 25 MG TAB PO ONE (09:30)
--- NOTE | 2017-01-25 10:25 | SOAPPROG ---
SOAP Progress Note Assessment/Plan: Assessment: 61 yo female with Hx of diabetes and renal failure in need of AV fistula creation. Bedside ultrasound today by Dr. Beebe to re-evaluate for AV fistula placement site versus need for a graft. Seen and discussed with Dr. Beebe S: No complaints today. O: Sitting up in chair NAD Strength/sensation/mobility intact of bilateral extremities 01/25/17 10:24 Objective: Vital Signs Temp Pulse Resp BP Pulse Ox 36.6 C 86 18 174/92 H 91 L 01/25/17 08:00 01/25/17 09:20 01/25/17 08:00 01/25/17 09:35 01/25/17 08:00 Laboratory Results 01/24/17 04:04 01/25/17 04:17 01/24/17 01/25/17 01/26/17 05:59 05:59 05:59 Intake Total 2200 1040 355 Output Total 1850 2950 900 Balance 350 -1910 -545 ICD10 Worksheet Patient Problems: Problems Problem Status Onset Chronic Disease [facility]/Transitional Care Acute Hypoxemia Acute Peripheral edema Acute Shortness of breath Acute Troponin level elevated Acute
--- NOTE | 2017-01-25 10:56 | SOAPPROG ---
SOAP Progress Note Assessment/Plan: Assessment/Plan: CKD stage IV: pt almost stage V, lytes ok, volume overloaded but responding well to Lasix. - No emergent need for HD. - Will continue to monitor. Hypervolemia: improved with IV Lasix, now switched to PO Lasix. Will see if she has enough response, may need additional metolazone if insufficient diuresis on oral Lasix. HTN: uncontrolled, unclear if cuff may be too small. Will increase hydralazine to 75mg TID and continue other meds. Access: Appreciate Dr. Beebe' assistance, getting US today after yuliya mapping done yesterday. Subjective: No acute events overnight. Pt having good UOP, getting PO Lasix today. She notes her swelling is markedly improved and she feels well. Her BP remains up, pt concerned that cuff is not large enough. Objective: Vital Signs Temp Pulse Resp BP Pulse Ox 36.6 C 86 18 174/92 H 91 L 01/25/17 08:00 01/25/17 09:20 01/25/17 08:00 01/25/17 09:35 01/25/17 08:00 Laboratory Results 01/24/17 04:04 01/25/17 04:17 01/24/17 01/25/17 01/26/17 05:59 05:59 05:59 Intake Total 2200 1040 355 Output Total 1850 2950 1050 Balance 350 -1910 -695 General: alert and oriented, no acute distress Eyes; EOMI, PERRL OP: Clear CV: RRR Resp: nonlabored respirations on RA Abd: Soft, NT/ND Ext: +2 edema BLE Neuro: CN II-XII grossly intact, no asterixis Psych: cooperative, appropriate mood and affect ICD10 Worksheet Patient Problems: Problems Problem Status Onset Chronic Disease Mgmt/Transitional Care Acute Hypoxemia Acute Peripheral edema Acute Shortness of breath Acute Troponin level elevated Acute
[2017-01-25 11:07] LABS: % IMMATURE GRANULYOCYTES 0.5 % (0.0-1.1); ABSOLUTE IMMATURE GRANULOCYTES 0.03 10^3/uL (0.00-0.10); ADD DIFF? NO; ADD MORPH? NO; ADD SCAN? NO; ATYPICAL LYMPHOCYTE FLAG 0 (0-99); FRAGMENT RBC FLAG 0 (0-99); HEMATOCRIT 30.4 % (38.0-47.0); HEMOGLOBIN 9.5 g/dL (12.6-16.3); LEFT SHIFT FLG 0 (0-99); LIPEMIA HEMOLYSIS FLAG 80 (0-99); MEAN CELL HEMOGLOBIN 29.1 pg (27.9-34.1); MEAN CELL HEMOGLOBIN CONCENTR. 31.3 g/dL (32.4-36.7); MEAN CELL VOLUME 93.3 fL (81.5-99.8); PLATELET CLUMPS FLAG 10 (0-99); PLATELET COUNT 308 10^3/uL (150-400); RED BLOOD CELL COUNT 3.26 10^6/uL (4.18-5.33); RED CELL DISTRIBUTION WIDTH 15.3 % (11.5-15.2)
--- NOTE | 2017-01-25 17:21 | HOSPPROG ---
Hospitalist Progress Note Assessment/Plan: Assessment: 61-year-old female presenting with acute hypertensive emergency resulting in acute diastolic congestive heart failure exacerbation Plan: # Acute diastolic CHF - Echo shows preserved EF, diastolic dysfunction and mod MR, BNP 8500, hypoxic - net neg 500cc s/p PO transition, -7.2kg LOS - monitor UOP, Cr - adjusted lasix to 80mg PO 2x, gauge effect over next 24hrs - room air challenge # Hypertensive Emergency - Evidenced by SBP 200s w/ end-organ failure, notably dCHF - nuc stress today w/ fixed defect lateral wall, no ischemia - cont correg 25 bid, losartan 50 daily, norvasc 10 daily, increased hydralazine 75 tid - SBP 170s today # CKD stage 4 - baseline Cr is 3-3.5, suspect secondary to diabetic nephropathy , followed by nephrology at [facility] in [place], will likely change care to [facility] since she lives at [facility] now - per Dr. Beebe, US to gauge veins # Hypokalemia - 2/2 diuresis, normalized # DM type 2 - bg 318 on arrival. A1c 7.5, though bg's remain in 200's here - cont lantus and lispro on current doses # Anemia of CKD - Had neg EGD/c-scope at [facility], hgb stable. No e/o bleeding. - epo received, Hgb 8.3 # Schizoprenia - chronic, mood stable, requires care setting - f/u w/ Dr. Coombs - cont abilify and zoloft Full code DVT PPLX - Heparin Dispo - ADD 01/26, requires uptitration of anti-HTN and gauge response Subjective: no pain, remains SOB w/ activity Objective: Vital Signs Temp Pulse Resp BP Pulse Ox 36.4 C 82 17 162/81 H 95 01/25/17 15:50 01/25/17 15:50 01/25/17 15:50 01/25/17 15:50 01/25/17 15:50 Laboratory Results 01/25/17 11:01 01/25/17 04:17 01/24/17 01/25/17 01/26/17 05:59 05:59 05:59 Intake Total 2200 1040 1005 Output Total 1850 2950 1650 Balance 350 -6644 -085 - Pending Discharge Pending Discharge Within 24 Hours: Yes Pending Discharge Date: 01/26/17 Pending Discharge Time: 11:00 - Physical Exam Constitutional: no apparent distress, appears nourished, not in pain, obese Cardiovascular: systolic murmur (I/ at all valves), edema (trace bilat LE), No irregularly irregular, No tachycardia Respiratory: no respiratory distress, no rales or rhonchi, clear to auscultation Gastrointestinal: normoactive bowel sounds, soft, non-tender abdomen, no palpable masses Neurologic: AAOx3, sensation intact bilaterally, No weakness Psychiatric: interacting appropriately, not anxious, not encephalopathic, thought process linear ICD10 Worksheet Patient Problems: Problems Problem Status Onset Chronic Disease Mgmt/Transitional Care Acute Peripheral edema Acute Hypoxemia Acute Shortness of breath Acute Troponin level elevated Acute
[2017-01-25] MEDS: ARIPiprazole 10 MG TAB PO SCH (21:30)
[2017-01-25] MEDS: SERTRALINE HCL 50 MG TAB PO SCH (21:31)
[2017-01-25] MEDS: INSULIN GLARGINE 100 UNITS/ML SYRINGE SC SCH (21:31)
[2017-01-26 05:44] LABS: ALBUMIN 2.7 g/dL (3.5-5.0); ANION GAP 7 mEq/L (8-16); CALCIUM 9.8 mg/dL (8.5-10.4); CARBON DIOXIDE 22 mEq/l (22-31); CHLORIDE 105 mEq/L (97-110); CREATININE 3.6 mg/dL (0.6-1.0); GLOMERULAR FILTRATION RATE 13; GLUCOSE 149 mg/dL (70-100); MAGNESIUM 1.9 mg/dL (1.6-2.3); POTASSIUM 3.8 mEq/L (3.5-5.2); SODIUM 134 mEq/L (134-144)
[2017-01-26] MEDS: HEPARIN 5,000 UNIT/0.5 ML SYR SC SCH ×2 (06:40→14:45)
[2017-01-26] MEDS: INSULIN LISPRO 100 UNIT/ML SC SCH ×4 (08:40→12:49)
[2017-01-26] MEDS: FERROUS SULFATE 325 MG TAB PO SCH (08:45)
[2017-01-26] MEDS: FUROSEMIDE 40 MG TAB PO SCH ×2 (08:46→14:46)
[2017-01-26] MEDS: LOSARTAN POTASSIUM 25 MG TAB PO SCH (08:46)
[2017-01-26] MEDS: CARVEDILOL 25 MG TAB PO SCH (08:46)
[2017-01-26] MEDS: POLYETHYLENE GLYCOL 3350 17 GM PKT PO SCH (08:48)
--- NOTE | 2017-01-26 09:07 | SOAPPROG ---
SOAP Progress Note Assessment/Plan: Assessment: 61 y/o woman with HTN, diastolic CHF, advanced CRI, IDDM admitted one week ago with volume overload. Echo and cardiolite show LVEF 66% with mild-moderate LVH, moderate MR, mild TR and estimated PAS 57% with no ischemia. She has diuresed well and feels better. No angina or PND. BP still high. REC: 1)increase Hydralazine to 100mg PO TID. 2)rest of meds without changes. 3)awaiting nephrology thoughts on whether needs AV fistula placed and start HD soon. 4)no cardiac cath needed. 01/26/17 08:46 Subjective: feels better. Walked 100 yds in hallways without symptoms Denies CP, palpitations or PND. Objective: Vital Signs Temp Pulse Resp BP Pulse Ox 36.8 C 81 16 168/82 H 91 L 01/26/17 04:00 01/26/17 04:00 01/26/17 04:00 01/26/17 04:00 01/26/17 04:00 Laboratory Results 01/25/17 11:01 01/26/17 04:56 01/25/17 01/26/17 01/27/17 05:59 05:59 05:59 Intake Total 1040 1155 Output Total 2950 3625 Balance -1910 -2470 Physical Exam - Physical Exam General Appearance: alert, obese EENT: normal ENT inspection Neck: full range of motion Respiratory: lungs clear Cardiac/Chest: regular rate, rhythm, JVD (JVP to 8cm), systolic murmur, No gallop Peripheral Pulses: 2+: carotid (R), carotid (L), femoral (R), femoral (L), dorsalis-pedis (R), dorsalis-pedis (L) Abdomen: non-tender, soft, No guarding Skin: warm/dry Extremities: No pedal edema Neuro/Psych: oriented x 3 ICD10 Worksheet Patient Problems: Problems Problem Status Onset Chronic Disease Mgmt/Transitional Care Acute Hypoxemia Acute Peripheral edema Acute Shortness of breath Acute Troponin level elevated Acute
[2017-01-26 09:17] VITALS: TEMP 98.1; O2SAT 93
--- NOTE | 2017-01-26 10:15 | SOAPPROG ---
NICHOLAS Progress Note Assessment/Plan: Assessment/Plan: 61 Y F CRF, needs peripheral access for HD. Screening with Dr. Beebe reveals small veins--poor options for AVF. May need AV graft. Likely will do this as outpatient unless patient stays in house over weekend. Will get formal bilateral upper extremity US vein mapping per Dr. Beebe ' request. 01/26/17 10:12 Objective: Vital Signs Temp Pulse Resp BP Pulse Ox 36.7 C 82 14 164/81 H 93 01/26/17 07:50 01/26/17 07:50 01/26/17 07:50 01/26/17 07:50 01/26/17 07:50 Laboratory Results 01/25/17 11:01 01/26/17 04:56 01/25/17 01/26/17 01/27/17 05:59 05:59 05:59 Intake Total 1040 1155 Output Total 1190 3625 400 Balance -1910 -2470 -400 ICD10 Worksheet Patient Problems: Problems Problem Status Onset Chronic Disease Mgmt/Transitional Care Acute Hypoxemia Acute Peripheral edema Acute Shortness of breath Acute Troponin level elevated Acute
--- NOTE | 2017-01-26 12:17 | ASMTCMCOM ---
CM Note CM Note Notes: Reviewed chart, spoke w/RN; case management plan remains d/c to [facility] where pt resides when medically stable. Case Management available if needs change. Date Signed: 01/26/2017 12:17 PM Electronically Signed By:Tatianna Love
[2017-01-26 12:20] VITALS: RESP 20
[2017-01-26] MEDS: EPOETIN ALFA 10,000 UNIT/ML VIAL SC SCH (12:49)
--- NOTE | 2017-01-26 14:55 | SOAPPROG ---
SOAP Progress Note Assessment/Plan: Assessment: 1)CKD4/5 -appreciate Dr. kuhn's input- looks like veins small and will need AVG 2)HTN -hydralazine just increased 3)anemia of CKD -Hb at goal -on Epo 4)MBD of CKD Plan: 01/26/17 14:54 01/26/17 14:55 Objective: Vital Signs Temp Pulse Resp BP Pulse Ox 36.7 C 83 20 153/75 H 93 01/26/17 11:45 01/26/17 11:45 01/26/17 11:45 01/26/17 11:45 01/26/17 11:45 Laboratory Results 01/25/17 11:01 01/26/17 04:56 01/25/17 01/26/17 01/27/17 05:59 05:59 05:59 Intake Total 1040 1155 200 Output Total 4577 1461 700 Balance -8500 -0310 -500 ICD10 Worksheet Patient Problems: Problems Problem Status Onset Chronic Disease Mgmt/Transitional Care Acute Hypoxemia Acute Peripheral edema Acute Shortness of breath Acute Troponin level elevated Acute
--- NOTE | 2017-01-26 15:18 | PDIAF ---
- Diagnosis Diagnosis: Acute systolic CHF, Stage IV CKD Code Status: Full Code - Medication Management Discharge Medications: Medications to Continue on Transfer ARIPiprazole [Abilify 10 mg (*)] 15 mg PO HS 01/18/17 [Last Taken 01/17/17] Polyethylene Glycol 3350 [Miralax 17 gm (*)] 17 gm PO Q2D 01/18/17 [Last Taken 01/17/17] Sertraline HCl [Zoloft 50mg (*)] 50 mg PO HS 01/18/17 [Last Taken 01/17/17] amLODIPine BESYLATE [Norvasc 10 mg (*)] 10 mg PO DAILY 01/18/17 [Last Taken ] Acetaminophen [Tylenol 325mg (*)] 650 mg PO Q4HRS PRN #0 tab 01/26/17 [Last Taken Unknown] Carvedilol [Coreg (*)] 25 mg PO BIDMEAL tab 01/26/17 [Last Taken Unknown] Ferrous Sulfate [Ferrous Sulf 325 MG (*)] 325 mg PO DAILY tab 01/26/17 [Last Taken Unknown] Furosemide [Lasix 40 MG (*)] 80 mg PO BIDDIUR tab 01/26/17 [Last Taken Unknown] Insulin Glargine [Lantus 100 UNITS/ML (*)] 14 units SC HS ml 01/26/17 [Last Taken Unknown] Insulin Lispro [humALOG LISPRO 100 units/ml (*)] 4 unit SC TIDMEAL unit [Last Taken Unknown] Losartan Potassium [Cozaar 25 mg (*)] 50 mg PO DAILY tab 01/26/17 [Last Taken Unknown] hydrALAZINE [Apresoline 50 mg (*)] 100 mg PO TID tab 01/26/17 [Last Taken Unknown] Retirement Antibiotics: NA Discharge Medications: Refer to the Discharge Home Medication list for PRN reason. PICC Care - Routine: N/A - Orders Services needed: Registered Nurse, Certified Body Painter, Master Retail Leasing Agent , Physical Therapy, Occupational Therapy Oxygen: NA Diet Recommendation: potassium restricted, cardiac -low fat low salt Weigh Patient: daily - Labs/Radiology BMP Date: 01/29/17 (weekly) Call or Fax Lab and Imaging Results to: Nick Soliman - Follow Up Care Current Providers and Referrals: April Ledezma MD [Medical Doctor] - As per Instructions Patient,NotPresent [Unknown] - As per Instructions Emory York MD [Medical Doctor] - (please call to schedule follow-up next week) Connor Romero MD [Medical Doctor] - (please call to schedule follow-up in 1 week) Good Beebe MD [Medical Doctor] - (please call to schedule follow-up next week)
--- NOTE | 2017-01-26 15:20 | PDIAF ---
- Diagnosis Diagnosis: Acute diastolic CHF, Stage IV CKD, Hypertensive Emergency Code Status: Full Code - Medication Management Discharge Medications: Medications to Continue on Transfer ARIPiprazole [Abilify 10 mg (*)] 15 mg PO HS 01/18/17 [Last Taken 01/17/17] Polyethylene Glycol 3350 [Miralax 17 gm (*)] 17 gm PO Q2D 01/18/17 [Last Taken 01/17/17] Sertraline HCl [Zoloft 50mg (*)] 50 mg PO HS 01/18/17 [Last Taken 01/17/17] amLODIPine BESYLATE [Norvasc 10 mg (*)] 10 mg PO DAILY 01/18/17 [Last Taken ] Acetaminophen [Tylenol 325mg (*)] 650 mg PO Q4HRS PRN #0 tab 01/26/17 [Last Taken Unknown] Carvedilol [Coreg (*)] 25 mg PO BIDMEAL tab 01/26/17 [Last Taken Unknown] Ferrous Sulfate [Ferrous Sulf 325 MG (*)] 325 mg PO DAILY tab 01/26/17 [Last Taken Unknown] Furosemide [Lasix 40 MG (*)] 80 mg PO BIDDIUR tab 01/26/17 [Last Taken Unknown] Insulin Glargine [Lantus 100 UNITS/ML (*)] 14 units SC HS ml 01/26/17 [Last Taken Unknown] Insulin Lispro [humALOG LISPRO 100 units/ml (*)] 4 unit SC TIDMEAL unit [Last Taken Unknown] Losartan Potassium [Cozaar 25 mg (*)] 50 mg PO DAILY tab 01/26/17 [Last Taken Unknown] hydrALAZINE [Apresoline 50 mg (*)] 100 mg PO TID tab 01/26/17 [Last Taken Unknown] Long-Term Antibiotics: NA Discharge Medications: Refer to the Discharge Home Medication list for PRN reason. PICC Care - Routine: N/A - Orders Services needed: Registered Nurse, Certified Health Actuary, Master Shipboard Intelligence Analyst , Physical Therapy, Occupational Therapy Oxygen: NA Diet Recommendation: potassium restricted, cardiac -low fat low salt Weigh Patient: daily - Labs/Radiology BMP Date: 01/29/17 (weekly) Call or Fax Lab and Imaging Results to: Nick Soliman - Follow Up Care Current Providers and Referrals: Connor Romero MD [Medical Doctor] - (please call to schedule follow-up in 1 week) Emory York MD [Medical Doctor] - (please call to schedule follow-up next week) Good Beebe MD [Medical Doctor] - (please call to schedule follow-up next week) April Ledezma MD [Medical Doctor] - As per Instructions Patient,NotPresent [Unknown] - As per Instructions
--- NOTE | 2017-01-26 15:32 | PDDCSUM ---
Discharge Summary Discharge Summary: DISCHARGE SUMMARY FOLLOW-UP ITEMS: Repeat creatinine BUN and lytes on Saturday and weekly thereafter DATE OF ADMISSION: 01/18/2017 DATE OF DISCHARGE: 01/26/2017 DISCHARGE DIAGNOSES: 1. Acute diastolic congestive heart failure exacerbation 2. Acute hypertensive emergency 3. Chronic kidney disease stage 4 4. Hypokalemia 5. Diabetes mellitus type 2 6. Anemia of chronic kidney disease 7. Chronic schizophrenia CONSULTATIONS: Cardiology, Nephrology, general surgery PROCEDURES / IMAGING: Vein mapping, nuclear medicine stress test demonstrating no inducible ischemia ( old infarct lateral wall), echocardiogram demonstrating preserved ejection fraction CHIEF COMPLAINT: Acute shortness of breath, lower extremity edema SUBJECTIVE: Patient is feeling well at time discharge, she is less short of breath with ambulation PHYSICAL EXAM ON DISCHARGE: Systolic blood pressure is 160s, heart rate 80,, satting on room air, afebrile overnight, net-8.3 kg length of stay, trace bilateral lower extremity edema right greater than left, clear lungs to auscultation bilaterally, heart rhythm regular, 1/6 systolic murmur at all valve locations LABS ON DISCHARGE: Creatinine 3.6, BUN 35, potassium 3.8, hemoglobin 9.5 HOSPITAL COURSE BY PROBLEM: 1. Acute hypertensive emergency. The patient presented with acute hypertensive emergency evidenced by systolic blood pressure in the 200s with end-organ failure notably CHF. Her blood pressure was aggressively managed she was diuresed effectively. Her systolic blood pressures been ranging between 150 and 170 prior to discharge. Her home antihypertensive medications have been significantly up titrated, to include Norvasc 10 mg daily, hydralazine 100 mg 3 times daily, Coreg 25 mg twice daily, losartan 50 mg daily. She is also on Lasix 80 mg twice daily. She did undergo nuclear medicine stress test which demonstrated no inducible ischemia, but the patient does have a fixed lateral wall defect. In the outpatient setting, she will be reassessed by Dr. Connor Romero for secondary CAD prevention. 2. Acute diastolic congestive heart failure exacerbation. Evidenced by pulmonary edema on chest x-ray, hypoxia, BNP of a 1500, diastolic dysfunction on echocardiogram with preserved ejection fraction. The patient was aggressively diuresed with IV Lasix, and was net-8.3kg length of stay. She was able to maintain a net neg to net even fluid balance on Lasix 80 mg twice daily. She did not become severely hypokalemic during this aggressive diuresis. She will have repeat chemistries next week to be monitored by Dr. Emory York to ensure she does not become overtly hypokalemic. She should have daily weights checked and she will follow up with Dr. Connor Romero. 3. Chronic kidney disease stage 4. Patient's baseline creatinine is 3-3.5, suspected to be secondary to diabetic nephropathy as well as uncontrolled hypertension. She has previously been followed by [facility], and she is changing her care to [facility] given that she resides in [facility] at the present time. She was seen in consultation by Dr. Tacos Beebe to consider dialysis access. She had vein mapping performed prior to discharge. She will follow up with Dr. Beebe next week to discuss her access options and to schedule in the near future. She also follow up with Dr. Emory York as an outpatient for chronic kidney disease management as she evolves into end-stage renal disease in the near future. 4. Diabetes mellitus type 2. Patient had hyperglycemia on arrival, hemoglobin A1c is 7.5%, she did have her lispro mildly uptitrated as well as her Lantus. 5. Anemia of chronic kidney disease. Patient had a negative upper endoscopy and colonoscopy at [facility], and she had no evidence of bleeding during this hospitalization. She did receive epo, and her hemoglobin did increase from 8.3 to 9.5. 6. Chronic schizophrenia. Patient's mood was stable, she does require care setting, she was continued on Abilify Zoloft, she will follow up in the outpatient setting with Dr. Coombs. DISCHARGE MEDICATIONS: Please see official discharge medication reconciliation sheet in chart , losartan 50 mg daily, hydralazine 100 mg 3 times daily, Coreg 25 mg twice daily , Norvasc 10 mg daily, Lasix 80 mg twice daily, discontinuation of labetalol. DISCHARGE INSTRUCTIONS: Please follow up with her outpatient providers within the next week. TIME SPENT: Greater than 30 minutes were spent on direct patient care, as well as discharge planning and preparation.
[2017-01-26] MEDS ORDERED: hydrALAZINE 10 MG TAB PO SCH (16:00)
[2017-01-26 16:34] VITALS: BP 149/79; PULSE 86
--- NOTE | 2017-01-27 09:36 | ASDISCHSUM ---
Discharge Information Plan Status:SNF Medically Cleared to Leave: Discharge Date:01/26/2017 04:47 PM CM D/C Disposition:[facility] Care Facility ADT D/C Disposition:Senior Care Facility Projected Discharge Date:01/28/2017 12:00 AM Transportation at D/C:Wheelchair Van Discharge Delay Reason: Follow-Up Date:01/28/2017 12:00 AM Discharge Slot: Final Diagnosis: Placement Information Referral Type:*Long Term/SNF Referral ID:[id number] Provider Name:eKyla Pacheco/DejhaBulbstormMICHELL Address 1:[address] Phone Number: Address 2: Fax Number: [facility]:[place] Selection Factors: State:[place] Patient Contact Information Contact Name:MATEUSZ Relationship:Daughter Address: Work Phone: City: [facility] Phone: [facility] Code: Email: Financial Information Financial Class: Primary Plan Desc:MEDICARE INPATIENT Primary Plan Number:[id number] Secondary Plan Desc:MEDICAID [place] Secondary Plan Number:[id number] Assessment Information [facility] CM Progress Note CM Note CM Note Notes: Spoke w/ RN, reviewed chart; pt requires ongoing diuresis; pt will be followed by transitional care at time of d/c; plan of care remains unchanged; anticipate d/c to [facility] when medically stable. CM to follow. Date Signed: 01/22/2017 02:26 PM Electronically Signed By:Janee Trinidad [facility] CM Progress Note CM Note CM Note Notes: Met w/pt to discuss dc poc which is still to return to [facility]. Manny Mayo at . Date Signed: 01/24/2017 05:37 PM Electronically Signed By:Zaida Diana [facility] CM Progress Note CM Note CM Note Notes: Reviewed chart, spoke w/RN; case management plan remains d/c to [facility] where pt resides when medically stable. Case Management available if needs change. Date Signed: 01/26/2017 12:17 PM Electronically Signed By:Tatianna Love Intervention Information
--- NOTE | 2017-02-03 13:37 | GCON ---
[f rep st] CONSULTATION DATE OF CONSULTATION: 01/23/2017 HISTORY OF PRESENT ILLNESS: The patient is a 61-year-old female seen in consultation for need for di alysis access. She is not presently on dialysis, but was admitted with fluid overload and appears to have progressive renal failure and soon to need dialysis, because the vein evaluation has not reveal ed much of any possibilities for placement of a prairie band AV fistula. PAST MEDICAL HISTORY: History includes ovarian cancer with a [facility] BSO. She has had some right arm juarez rgery as well, multiple eye surgeries, hypertension, diabetes, anemia, chronic renal failure, congest kranthi heart failure, moderate pulmonary hypertension. ALLERGIES: KALYANI inhibitors, aspirin, gentamicin, lisinopril, metformin, and sulfa. MEDICATIONS: Abilify, sertraline, insulin, labetalol, amlodipine, detemir, MiraLAX, Coreg, Lasix, La ntus, nitroglycerin, and Zofran. FAMILY HISTORY: Includes diabetes and hypertension. REVIEW OF SYSTEMS: Reveals no other problems other than those related in the history of the present illness and the past history. SOCIAL HISTORY: She does not smoke or drink. PHYSICAL EXAMINATION: GENERAL: An alert, pleasant 61-year-old female in no acute distress. VITAL S IGNS: Blood pressure was 150/100. HEAD AND NECK: Reveals normal pupils. No oral lesions. Supple neck. No thyromegaly. No icterus. No carotid bruits. CHEST: Clear. CARDIAC: Regular rhythm. A BDOMEN: Soft and nontender. SKIN: Reveals no major lesions or abnormalities. PSYCH: Reveals her to be oriented, cooperative and alert. EXTREMITIES: Reveal full range of motion, full pulses, but n o readily visible veins in her arms for dialysis access. NEURO: Physiologic and symmetric. IMPRESSION: Chronic renal failure with impending initiation of dialysis. She seems to have poor opt ions for a prairie band arteriovenous fistula. I will plan to re-ultrasound her arm myself to see what pos sibilities we can find. She may be better off waiting until dialysis time to have an arteriovenous g raft placed. Risks and options have been fully discussed with the patient and she seems to understan d. We will follow her up as an outpatient. /[id number]/MODL
== END 2017-01-26 16:47 | DRG 291 ==
LOC: F2W 14:26
PROVIDERS: ADMIT Hospitalist; ATTEND Hospitalist
DX: I13.0 Hypertensive heart and chronic kidney disease with heart failure and stage 1 through stage 4 chronic kidney disease, or unspecified chronic kidney disease (principal); I50.33 Acute on chronic diastolic (congestive) heart failure; N18.4 Chronic kidney disease, stage 4 (severe); F20.89 Other schizophrenia; E11.21 Type 2 diabetes mellitus with diabetic nephropathy; E87.6 Hypokalemia; D63.1 Anemia in chronic kidney disease; E11.319 Type 2 diabetes mellitus with unspecified diabetic retinopathy without macular edema; H54.8 Legal blindness, as defined in USA; E66.01 Morbid (severe) obesity due to excess calories; D53.9 Nutritional anemia, unspecified; E11.42 Type 2 diabetes mellitus with diabetic polyneuropathy; Z79.84 Long term (current) use of oral hypoglycemic drugs; Z85.43 Personal history of malignant neoplasm of ovary; Z82.49 Family history of ischemic heart disease and other diseases of the circulatory system; Z94.89 Other transplanted organ and tissue status
CPT/HCPCS: 96374; 97116-GP; 97162-GP; 97165-GO; 97535-GO; A9500; G8978-GP-CI; G8979-GP-CI; G8987-GO-CJ; G8988-GO-CI; J0885; J1815; J1940; J2785

== ENCOUNTER → 2017-02-21 | Day surgery (SDC) | payer OTHER, MEDICAID ==
--- NOTE | 2017-02-20 12:24 | GHP ---
[f rep st] HISTORY AND PHYSICAL DATE OF ADMISSION: 02/21/2017 CHIEF COMPLAINT: AV fistula consult. HISTORY OF PRESENT ILLNESS: The patient is a 61-year-old female who was seen in the emergency room a fter admission, complaining of shortness of breath and bilateral lower extremity edema from 7 to 01/26/2017. Her workup revealed an acute hypertensive emergency with acute diastolic CHF exacer bation in the setting CKD, stage 4, that is thought to be secondary to diabetic nephropathy. Her epi sode was treated aggressively with diuresis in the hospital, and her antihypertensives were uptitrate d prior to her discharge. During this admission, I saw the patient in consultation for AV fistula pl acement for hemodialysis. She is here today to talk further about having a fistula placed. She unde rwent ultrasound vein mapping of the upper extremities while hospitalized, and her last labs obtained at the hospital revealed a the potassium level to be 2.8, hemoglobin to be 9.5, BUN 35, and creatini ne 3.6. Today, the patient says that she has felt very good since she was discharged from the hospital. She notes that her history is as reported above. She tells me that she has not yet been started on hemod ialysis, and has not had any symptoms of her kidney disease since her discharge from the hospital. S he states that part of the reason she reported to the emergency room was that she had not urinated fo r 6 days prior. She is on Lasix now and has been urinating. PAST MEDICAL HISTORY: Shortness of breath, CHF (NYHA class II), chronic diastolic heart failure, and fall risk. PAST SURGICAL HISTORY: No past surgical history. MEDICATIONS: Acetaminophen, amlodipine, aripiprazole, Dulcolax, vitamin D3, Coreg, ferrous sulfate, furosemide, Humalog, hydralazine, albuterol, Lantus, losartan, Nitrostat, MiraLAX, and sertraline. FAMILY HISTORY: No family history of coronary artery disease. SOCIAL HISTORY: No alcohol use, no tobacco use. REVIEW OF SYSTEMS: 10-point review of systems negative except noted above in the HPI. PHYSICAL EXAMINATION: GENERAL: Well-groomed, pleasant, nontoxic-appearing female. SKIN: Warm, dry . HEENT: Normocephalic. Pupils equal and round, positive for visual impairment. CARDIAC: Regular rate and rhythm. RESPIRATORY: Lungs clear to auscultation bilaterally. No increased work of breat rosa. EXTREMITIES: Hand sap developer and upper extremity strength 5/5 bilaterally. Positive strong palpabl e radial pulses bilaterally, positive for mild bilateral lower extremity edema. MUSCULOSKELETAL: Am bulates well independently with normal gait. NEUROLOGIC: Alert and oriented. Peripheral sensory an d motor exam intact, PSYCH: Mood and affect normal. RESULTS: Ultrasound vein mapping from 01/26/2017: Cephalic veins are not visualized bilaterally. B asilic veins are patent bilaterally with the right basilic measuring approximately 3 mm proximal to t he mid aspect and 2.2 mm distally. The left basilic vein measured 1.7 mm proximally, 2.3 mm at the m id aspect, and 2.2 mm distally. Ultrasound vein mapping performed in office is consistent with the kvng smith results. ASSESSMENT: Chronic kidney disease, stage 4. PLAN: Options for hemodialysis, including neck catheter versus PD catheter versus AV fistula access, were discussed with the patient. She understood the differences, disadvantages, and benefits of eac h. We discussed the general course of an AVF creation, the usual course of recovery and maturation, and the associated risks, including bleeding, infection, clotting of the fistula, and steal syndrome. I explained to the patient that she does not have great veins to use, and she may require a synthet ic graft. We also discussed the possibility that any synthetic graft may need frequent revision surg eries in order to keep the AV access patent. I also explained to her that her right arm shows poor v eins, and so even though this is her dominant side, would prefer to use this arm to create the AV fis [facility]. The patient understood all the above and wishes to proceed with the AV creation. She will nee brett cardiac clearance before being taken to the operating room, which [facility] . /[id number]/MODL
[~2017-02-21] MED LIST: ALBUTEROL 3 ML DEYVIAL IH PRN; BACITRACIN 50,000 UNITS/10 ML SYR IRR ONE; BUPIVACAINE 0.5% 30 ML SDV ONE; CEFAZOLIN 2 GM/DEXTROSE/100 ML BAG IV ONE; HEPARIN 10,000 UNIT/10 ML MDV ONE; INSULIN REGULAR HUMAN 100 UNIT/ML IVP ONE; INSULIN REGULAR HUMAN 100 UNIT/ML ONE; IOTHALAMATE MEG (CONRAY) 50 ML VIAL IV ONE; LIDOCAINE 1% 2 ML INJ ID PRN; LIDOCAINE 1% 300 MG/30 ML SDV ONE; LIDOCAINE 2% 5 ML SDV ONE; METOCLOPRAMIDE 10 MG/2 ML VIAL ONE; NALOXONE HCL 0.4 MG/ML INJ IVP PRN; NS 1,000 ML IV ONE; ONDANSETRON 4 MG/2 ML VIAL IVP PRN; ONDANSETRON 4 MG/2 ML VIAL ONE; POLYMYXIN B SULFATE 500,000 UNIT/10 ML SYR IRR ONE; PROPOFOL 200 MG/20 ML VIAL ONE; PROTAMINE SULFATE 50 MG/5 ML VIAL IVP ONE; SODIUM BICARBONATE 10 MEQ/10 ML SYR IVP ONE; THROMBIN (BOVINE) 20,000 UNIT SPRAY TP ONE; ceFAZolin 2 GM/DEXTROSE 100 ML IV ONE; fentaNYL 100 MCG/2 ML INJ IVP PRN; fentaNYL 100 MCG/2 ML INJ ONE
--- NOTE | 2017-02-21 12:16 | PDHPUP ---
History & Physical Update H&P update statement: This history and physical update is based on an assessment of the patient which was completed after admission or registration (within 24 hours), but prior to the surgery/procedure. H&P update: H&P reviewed & patient examined, no change in patient's condition since H&P completed
--- NOTE | 2017-02-21 12:26 | PDANEPAE ---
ANE History of Present Illness AV Fistula ANE Past Medical History - Cardiovascular History Hx Hypertension: Yes Hx CHF / Valvular Disease: Yes Cardiovascular History Comment: PULM EDEMA - Pulmonary History Hx Oxygen in Use at Home: Yes Hx Sleep Apnea: No Pulmonary History Comment: HYPOXEMIA - Endocrine History Hx Diabetes: Yes Endocrine History Comment: IDDM - Renal History Hx Renal Disorders: Yes Renal History Comment: CHRONIC RENAL INSUFF - Cancer History Hx Cancer: Yes Cancer History Comment: OVARIAN - Other Health History Other Health History: PERIPHERAL EDEMA. PATIENT IS BLIND - Chronic Pain History Chronic Pain: No - Surgical History Prior Surgeries: HYSTERECTOMY/BSO. MULTIPLE EYE. RT ARM ANE Review of Systems Review of Systems: - Exercise capacity METS (RN): 1 METS ANE Patient History - Allergies Allergies/Adverse Reactions: KALYANI Inhibitors Allergy (Verified 02/21/17 09:59) Loss of consciousness aspirin Allergy (Verified 02/21/17 09:59) Other-Enter Comments gentamicin Allergy (Verified 02/21/17 09:59) Other-Enter Comments lisinopril Allergy (Verified 02/21/17 09:59) Loss of consciousness metformin Allergy (Verified 02/21/17 09:59) Other-Enter Comments Sulfa (Sulfonamide Antibiotics) Allergy (Verified 02/21/17 09:59) Unknown - Home Medications Home Medications: ARIPiprazole [Abilify 10 mg (*)] 15 mg PO HS 01/18/17 [Last Taken 01/17/17] Polyethylene Glycol 3350 [Miralax 17 gm (*)] 17 gm PO Q2D 01/18/17 [Last Taken 01/17/17] Sertraline HCl [Zoloft 50mg (*)] 50 mg PO HS 01/18/17 [Last Taken 01/17/17] amLODIPine BESYLATE [Norvasc 10 mg (*)] 10 mg PO DAILY 01/18/17 [Last Taken ] - NPO status NPO Since - Liquids (Date): 02/20/17 NPO Since - Liquids (Time): 17:00 NPO Since - Solids (Date): 02/20/17 NPO Since - Solids (Time): 17:00 - Smoking Hx Smoking Status: Never smoked ANE Labs/Vital Signs - Vital Signs Blood Pressure: 116/63 Heart Rate: 79 Respiratory Rate: 16 O2 Sat (%): 97 Height: 180.34 cm Weight: 102.965 kg ANE Physical Exam - Airway Neck exam: FROM Mallampati Score: Class 2 Mouth exam: poor dentition - Pulmonary Pulmonary: clear to auscultation - Cardiovascular Cardiovascular: regular rate and rhythym - ASA Status ASA Status: III ANE Anesthesia Plan Anesthesia Plan: GA w LMA
--- NOTE | 2017-02-21 14:56 | POSTOPPROG ---
Post Op Note Date of Operation: 02/21/17 Surgeon: Good Beebe General Teller: Una Cunningham Anesthesiologist: Shayy Anesthesia: GET(General Endotracheal) Pre-op Diagnosis: Renal failure, AVF for dialysis Post-op Diagnosis: same Indication: Need for dialysis access Procedure: left basilic vein transposition, AV fistula creation Inf/Abcess present in the surg proc area at time of surgery?: No Depth: Superfical (Skin SQ) EBL: Minimal Drains: Dawson Santillan
--- NOTE | 2017-02-21 14:57 | POSTANESTH ---
Post Anesthetic Evaluation Cardiovascular Status: Normal, Stable Respiratory Status: Normal, Stable Level of Consciousness/Mental Status: Can Participate in Eval, Mildly Sleepy, Arousable Pain Control: Adequate, Prn Tx Ordered Nausea/Vomiting Control: Adequate, Prn Tx Ordered Complications Possibly Related to Anesthesia: None Noted
[2017-02-21 15:57] VITALS: RESP 14
[2017-02-21 17:21] VITALS: BP 134/61; PULSE 77; TEMP 96.8; O2SAT 92
--- NOTE | 2017-02-27 04:58 | GOP ---
[f rep st] OPERATIVE REPORT DATE OF OPERATION: 02/21/2017 SURGEON: Good Beebe MD MARKETING PROFESSOR: Una Cunningham PA-C. ANESTHESIOLOGIST: Jack Lucas DO. PREOPERATIVE DIAGNOSIS: Chronic renal failure. POSTOPERATIVE DIAGNOSIS: Chronic renal failure. PROCEDURE PERFORMED: 1. Ultrasound vein mapping, left arm. 2. Left basilic vein transposition arteriovenous fistula. FINDINGS: The patient was found to have small cephalic veins in the upper and lower arm, but she had adequate basilic vein medially. DESCRIPTION OF PROCEDURE: The patient was taken to the operating room where she received satisfactor y general endotracheal anesthesia. She was placed in supine position with the left arm outstretched on an arm board, prepped and draped in the usual sterile fashion. Using ultrasound, the veins were m apped in her left arm. A decision was made to use a basilic vein and a longitudinal incision was mad e medial aspect of the left arm. Dissection was carried down to the basilic vein, which was dissecte d all the way up to near the axilla and back down to the antecubital fossa. It was elevated up. Mul tiple branches were ligated and divided. The brachial artery was dissected free above the antecubita l space and controlled with vessel loops. The basilic vein was then ligated distally. It was then t ransposed in a superficial tunnel in a subdermal position and back down to the brachial artery where an end-to-side anastomosis was made with the brachial artery with a running 6-0 Prolene suture. Flow was first established through the AV fistula which appeared to be flowing quite well. Then, flow wa s restored to the hand with good radial pulse and good capillary filling. The patient had been syste mically heparinized and the heparin was reversed with protamine. Hemostasis was assured. The wound was sprayed with some topical thrombin. A 15-round silicone drain was brought out through separate s tab incision, secured to the skin with a silk suture and the wound was closed in layers using 2-0 Fan ryl for the subcutaneous tissue and skin daria for the skin. She tolerated the procedure quite well and was taken to the recovery room in good condition. /[id number]/MODL
== END | disposition home or self-care (01) ==
LOC: FSGY 09:15
PROVIDERS: ATTEND Surgery
PROC: 03180ZD Bypass Left Brachial Artery to Upper Arm Vein, Open Approach (ICD-10-PCS; principal; 2017-02-21 10:45)
DX: N18.4 Chronic kidney disease, stage 4 (severe) (principal); I13.0 Hypertensive heart and chronic kidney disease with heart failure and stage 1 through stage 4 chronic kidney disease, or unspecified chronic kidney disease; I50.30 Unspecified diastolic (congestive) heart failure; E11.22 Type 2 diabetes mellitus with diabetic chronic kidney disease; E11.21 Type 2 diabetes mellitus with diabetic nephropathy
CPT/HCPCS: J0690; J1644; J1815; J2405; J2704; J2720; J2765; J3010; Q9961

== ENCOUNTER 2017-07-15 09:18 | Day surgery (SDC) | payer OTHER, MEDICAID ==
[2017-07-15] MEDS ORDERED: HEPARIN 10,000 UNIT/10 ML MDV (1,000 UNIT/ML) IVP PRN (09:58)
[2017-07-15] MEDS ORDERED: PROTAMINE SULFATE 50 MG/5 ML VIAL IVP PRN (09:58)
[2017-07-15] MEDS ORDERED: NALOXONE HCL 0.4 MG/ML INJ IVP PRN (09:58)
[2017-07-15] MEDS ORDERED: fentaNYL 100 MCG/2 ML INJ IVP PRN (09:58)
[2017-07-15] MEDS ORDERED: FLUMAZENIL 0.5 MG/5 ML MDV IVP PRN (09:58)
[2017-07-15] MEDS ORDERED: MIDAZOLAM 2 MG/2 ML VIAL IVP PRN (09:58)
[2017-07-15] MEDS ORDERED: NS 1,000 ML IV SCH (10:00)
[2017-07-15 10:34] VITALS: PULSE 79
[2017-07-15] MEDS ORDERED: IOPAMIDOL (ISOVUE-300) 100 ML BTL ONE (10:51)
--- NOTE | 2017-07-15 11:07 | PDGENHP ---
History & Physical Chief Complaint: Elevated venous pressures during dialysis History of Present Illness: 61 yo F ESRD on HD via LUE AVF placed February 2017 and matured May 2017. Able to undergo HD but occasional high pressure alarms per pt. Pertinent Past, Social, Family History: Noncontributory. Relevant Physical Exam: Pulsatile LUE fistula, mild thrill. Cardiorespiratory Assessment: RRR. Normal resp effort.
[2017-07-15] MEDS ORDERED: MIDAZOLAM 2 MG/2 ML VIAL ONE (11:21)
[2017-07-15] MEDS ORDERED: fentaNYL 100 MCG/2 ML INJ ONE (11:21)
[2017-07-15] MEDS ORDERED: HEPARIN 10,000 UNIT/10 ML MDV (1,000 UNIT/ML) ONE (11:44)
--- NOTE | 2017-07-15 12:11 | PDPROPOC ---
Sedation Plan of Care Sedation Plan of Care: vital signs stable, mental status noted, patient educated of risks, benefits, alternatives, patient can tolerate sedation ASA Classification: ASA 3 Planned drugs: fentanyl, midazolam Mallampati Score: Class 2 Mallampati Reference Image: Patient passed 3-3-2 rule?: Yes
[2017-07-15] MEDS ORDERED: ONDANSETRON 4 MG/2 ML VIAL IVP PRN (12:13)
[2017-07-15] MEDS ORDERED: ACETAMINOPHEN 325 MG TAB PO PRN (12:13)
--- NOTE | 2017-07-15 12:13 | PDRADPN ---
Radiology Procedure Note Date of Procedure: 07/15/17 Radiologist: Keaton Lord Anesthesia: IV Sedation Pre-op Diagnosis: ESRD on HD Post-op Diagnosis: Same Indication: High venous pressures, fistulogram requested Procedure: Fistulogram, venoplasty Finding(s): See dictated report Inf/Abcess present in the surg proc area at time of surgery?: No EBL: Minimal Complications: No immediate
[2017-07-15 13:27] VITALS: RESP 16
[2017-07-15 16:25] VITALS: TEMP 98.4
[2017-07-15 17:28] VITALS: BP 161/81; O2SAT 90
== END 2017-07-15 14:53 ==
LOC: FIMAGING 09:18
PROVIDERS: ATTEND Internal Medicine Nephrology
PROC: 057A3ZZ Dilation of Left Brachial Vein, Percutaneous Approach (ICD-10-PCS; principal; 2017-07-15 12:20)
DX: T82.898A Other specified complication of vascular prosthetic devices, implants and grafts, initial encounter (principal); N18.6 End stage renal disease; Z99.2 Dependence on renal dialysis
CPT/HCPCS: 36598; 37799; 99152; 99153; C1769; C1894; C1725; J1644; J2250; J3010; Q9967

== ENCOUNTER 2017-09-25 13:14 | Day surgery (SDC) | payer OTHER, MEDICAID ==
[2017-09-25] MEDS ORDERED: ceFAZolin 2 GM/SWFI 20 ML SYR IVP ONE (14:18)
--- NOTE | 2017-09-25 14:29 | PDGENHP ---
History & Physical Chief Complaint: Unable to dialyze through LUE AVF History of Present Illness: 61 yo F w diastolic CHF, DM, HTN, and ESRD on HD who was unable to undergo regularly scheduled dialysis this am. Was told fistula was clotted. Last underwent HD on Saturday, 09/23, without difficulty, and had been undergoing dialysis without issue since angioplasty on 07/15. Said that she did have some left upper arm pain last night, around 7-8 pm, which was 4/ 10. Denies pain currently. Denies, FC, NV, SOB, CP. Pertinent Past, Social, Family History: Lives at [facility]. Relevant Physical Exam: Obese, LUE AVF pulsatile proximally, but firm and non- pulsatile over sites over recent access. Cardiorespiratory Assessment: RRR, normal resp effort, equal excursions.
[2017-09-25] MEDS ORDERED: ceFAZolin 2 GM/SWFI 2 GM/20 ML SYR IVP ONE (14:30)
--- NOTE | 2017-09-25 14:32 | PDPROPOC ---
Sedation Plan of Care Sedation Plan of Care: vital signs stable, mental status noted, patient educated of risks, benefits, alternatives, patient can tolerate sedation ASA Classification: ASA 3 Planned drugs: fentanyl Mallampati Score: Class 2 Mallampati Reference Image: Patient passed 3-3-2 rule?: Yes
[2017-09-25] MEDS ORDERED: fentaNYL 100 MCG/2 ML INJ ONE ×6 (14:33→18:09)
[2017-09-25] MEDS ORDERED: NALOXONE HCL 0.4 MG/ML INJ IVP PRN (14:42)
[2017-09-25] MEDS ORDERED: MIDAZOLAM 2 MG/2 ML VIAL IVP PRN (14:42)
[2017-09-25] MEDS ORDERED: MEPERIDINE 25 MG/ML SYR IVP PRN (14:42)
[2017-09-25] MEDS ORDERED: ALTEPLASE 2 MG VIAL IVP PRN (14:42)
[2017-09-25] MEDS ORDERED: HEPARIN 10,000 UNIT/10 ML MDV (1,000 UNIT/ML) IVP PRN (14:42)
[2017-09-25] MEDS ORDERED: PROTAMINE SULFATE 50 MG/5 ML VIAL IVP PRN (14:42)
[2017-09-25] MEDS ORDERED: GLUCAGON HCL 1 MG VIAL IVP PRN (14:42)
[2017-09-25] MEDS ORDERED: fentaNYL 100 MCG/2 ML INJ IVP PRN (14:42)
[2017-09-25] MEDS ORDERED: FLUMAZENIL 0.5 MG/5 ML MDV IVP PRN (14:42)
[2017-09-25] MEDS ORDERED: NS 1,000 ML IV SCH (14:45)
[2017-09-25 15:27] LABS: INR 1.24 (0.83-1.16); PROTIME(PATIENT) 15.8 SEC (12.0-15.0)
[2017-09-25] MEDS ORDERED: IOPAMIDOL (ISOVUE-300) 100 ML BTL ONE ×2 (15:59→18:36)
[2017-09-25] MEDS ORDERED: LIDOCAINE 1% 300 MG/30 ML SDV ONE (15:59)
[2017-09-25] MEDS ORDERED: ACETAMINOPHEN 325 MG TAB PO PRN (19:02)
[2017-09-25] MEDS ORDERED: ONDANSETRON 4 MG/2 ML VIAL IVP PRN (19:02)
--- NOTE | 2017-09-25 19:08 | PDRADPN ---
Radiology Procedure Note Date of Procedure: 09/25/17 Radiologist: Keaton Lord Anesthesia: IV Sedation Pre-op Diagnosis: ESRD, clotted AVF Post-op Diagnosis: Same Indication: Clotted AVF Procedure: Fistulogram, pharmacomechanical thrombectomy, angioplasty Finding(s): Challenging de-clot of LUE brachiocephalic AVF. Recurrent outflow stenosis serially balloon dilated to 8 mm good angiographic result. See dictated report for details. Inf/Abcess present in the surg proc area at time of surgery?: No EBL: Minimal Complications: No immediate
[2017-09-25 20:35] VITALS: BP 141/69
== END 2017-09-25 20:25 ==
LOC: FIMAGING 13:14
PROVIDERS: ATTEND Radiology Diagnostic Radiology
PROC: 05CA3ZZ Extirpation of Matter from Left Brachial Vein, Percutaneous Approach (ICD-10-PCS; principal; 2017-09-25 18:27)
PROC: 057A3ZZ Dilation of Left Brachial Vein, Percutaneous Approach (ICD-10-PCS; principal; 2017-09-25 18:27)
PROC: B51W1ZA Fluoroscopy of Dialysis Shunt/Fistula using Low Osmolar Contrast, Guidance (ICD-10-PCS; principal; 2017-09-25 18:27)
PROC: 05CC3ZZ Extirpation of Matter from Left Basilic Vein, Percutaneous Approach (ICD-10-PCS; principal; 2017-09-25 18:27)
PROC: B54NZZA Ultrasonography of Left Upper Extremity Veins, Guidance (ICD-10-PCS; principal; 2017-09-25 18:27)
PROC: 057F3ZZ Dilation of Left Cephalic Vein, Percutaneous Approach (ICD-10-PCS; principal; 2017-09-25 18:27)
DX: T82.868A Thrombosis due to vascular prosthetic devices, implants and grafts, initial encounter (principal); N18.6 End stage renal disease; E11.22 Type 2 diabetes mellitus with diabetic chronic kidney disease; I13.2 Hypertensive heart and chronic kidney disease with heart failure and with stage 5 chronic kidney disease, or end stage renal disease; I50.30 Unspecified diastolic (congestive) heart failure
CPT/HCPCS: 36905; C1758; C1769; C1894; C1725; J0690; J1644; J2997; J3010; Q9967

== ENCOUNTER 2017-09-26 14:08 | Emergency (ER) | payer OTHER, MEDICAID ==
[2017-09-26 14:13] VITALS: BP 148/84
[2017-09-26] MEDS ORDERED: fentaNYL 100 MCG/2 ML INJ ONE (16:05)
[2017-09-26] MEDS ORDERED: ceFAZolin 2 GM/SWFI 20 ML SYR IVP ONE (16:10)
--- NOTE | 2017-09-30 11:08 | GCON ---
[f rep st] CONSULTATION DATE OF CONSULTATION: 09/26/2017 HISTORY OF PRESENT ILLNESS: Patient is a 61-year-old female on dialysis with a left arm basilic vein transposition AV fistula in the upper arm. She was apparently having some difficulties in dialysis. She does have a short segment of fistula which is superficial enough for access. I was consulted a s she was on the interventional radial table for an angiogram of her fistula. The fistula had an exc ellent bruit throughout. Ultrasound exam of the fistula was performed and appeared to be a patent fis al throughout with 1 small area near a hematoma that was possibly compressed on angiography. Fistu la look widely patent except for 1 possible small area which I agreed would be amenable to angioplast y, but probably not requiring a stent. Procedure is being performed by Dr. Tang. PAST MEDICAL HISTORY: The patient is in chronic renal failure and lives at [facility]. PHYSICAL EXAMINATION: Was limited to her arm, which revealed a good thrill in the AV fistula and a g ood radial pulse. There was some ecchymosis around the fistula from previous injections. IMPRESSIONS: Patent arteriovenous fistula, hopefully would not require stent graft placement. /[id number]/MODL
== END 2017-09-26 15:20 | disposition home or self-care (01) ==
DX: I77.0 Arteriovenous fistula, acquired (principal)
CPT/HCPCS: 99284; J0690; J3010; C1725; C1769; C1894; J1644; Q9967

== ENCOUNTER → 2017-09-26 | Day surgery (SDC) | payer OTHER, MEDICAID ==
[~2017-09-26] MED LIST changes: +ACETAMINOPHEN 325 MG TAB PO PRN; -ALBUTEROL 3 ML DEYVIAL IH PRN; +ALTEPLASE 2 MG VIAL IVP PRN; -BACITRACIN 50,000 UNITS/10 ML SYR IRR ONE; -BUPIVACAINE 0.5% 30 ML SDV ONE; -CEFAZOLIN 2 GM/DEXTROSE/100 ML BAG IV ONE; +FLUMAZENIL 0.5 MG/5 ML MDV IVP PRN; +GLUCAGON HCL 1 MG VIAL IVP PRN; +HEPARIN 10,000 UNIT/10 ML MDV (1,000 UNIT/ML) IVP PRN; -HEPARIN 10,000 UNIT/10 ML MDV ONE; -INSULIN REGULAR HUMAN 100 UNIT/ML IVP ONE; -INSULIN REGULAR HUMAN 100 UNIT/ML ONE; +IOPAMIDOL (ISOVUE-300) 100 ML BTL ONE; -IOTHALAMATE MEG (CONRAY) 50 ML VIAL IV ONE; -LIDOCAINE 1% 2 ML INJ ID PRN; -LIDOCAINE 1% 300 MG/30 ML SDV ONE; -LIDOCAINE 2% 5 ML SDV ONE; +MEPERIDINE 25 MG/ML SYR IVP PRN; -METOCLOPRAMIDE 10 MG/2 ML VIAL ONE; -NS 1,000 ML IV ONE; +NS 1,000 ML IV SCH; -ONDANSETRON 4 MG/2 ML VIAL ONE; -POLYMYXIN B SULFATE 500,000 UNIT/10 ML SYR IRR ONE; -PROPOFOL 200 MG/20 ML VIAL ONE; -PROTAMINE SULFATE 50 MG/5 ML VIAL IVP ONE; +PROTAMINE SULFATE 50 MG/5 ML VIAL IVP PRN; -SODIUM BICARBONATE 10 MEQ/10 ML SYR IVP ONE; -THROMBIN (BOVINE) 20,000 UNIT SPRAY TP ONE; -ceFAZolin 2 GM/DEXTROSE 100 ML IV ONE; +ceFAZolin 2 GM/SWFI 2 GM/20 ML SYR IVP ONE; -fentaNYL 100 MCG/2 ML INJ ONE
--- NOTE | 2017-09-26 17:57 | PDGENHP ---
History & Physical Chief Complaint: AVF dysfxn History of Present Illness: 61 yo F w diastolic CHF, DM, HTN, and ESRD on HD s/ p LUE AVF declot 1 day ago. Went to dialysis this am. Able to get inflow access without difficulty, but unable to get outflow. Concern for re-thrombosis. Repeat fistulogram/declot requested. Pertinent Past, Social, Family History: Lives at [facility]. Relevant Physical Exam: LUE AVF w thrill throughout, gently pulsatile. Firm areas correspond to sites of recent access for HD and a thrombosed PSA. Cardiorespiratory Assessment: RRR, normal resp effort, equal excursions.
[2017-09-26 17:58] VITALS: BP 157/85
--- NOTE | 2017-09-26 18:06 | PDRADPN ---
Radiology Procedure Note Date of Procedure: 09/26/17 Radiologist: Keaton Lord Pre-op Diagnosis: ESRD on HD Post-op Diagnosis: Same Indication: AVF dysfxn Procedure: Fistulogram, venoplasty Finding(s): Widely patent LUE brachiobacilic AVF w good antegrade flow. Subtle luminal irregularity at site of recent recurrent stenosis balloon dilated, but no further intervention felt to be needed. Surgeon Dr. Beebe present and in a agreement. Inf/Abcess present in the surg proc area at time of surgery?: No EBL: Minimal Complications: No immediate
== END | disposition home or self-care (01) ==
LOC: FIMAGING 16:15
PROVIDERS: ATTEND Internal Medicine Nephrology
PROC: 057F3ZZ Dilation of Left Cephalic Vein, Percutaneous Approach (ICD-10-PCS; principal; 2017-09-26 17:04)
PROC: 057A3ZZ Dilation of Left Brachial Vein, Percutaneous Approach (ICD-10-PCS; principal; 2017-09-26 17:04)
PROC: B51W1ZA Fluoroscopy of Dialysis Shunt/Fistula using Low Osmolar Contrast, Guidance (ICD-10-PCS; principal; 2017-09-26 17:04)
DX: T82.858A Stenosis of other vascular prosthetic devices, implants and grafts, initial encounter (principal); N18.6 End stage renal disease; E11.22 Type 2 diabetes mellitus with diabetic chronic kidney disease; I13.2 Hypertensive heart and chronic kidney disease with heart failure and with stage 5 chronic kidney disease, or end stage renal disease; I50.32 Chronic diastolic (congestive) heart failure; Z99.2 Dependence on renal dialysis; Z79.84 Long term (current) use of oral hypoglycemic drugs
CPT/HCPCS: 36905; C1769; C1894; C1725; J1644; J3010; Q9967

== ENCOUNTER 2017-12-05 11:34 | Day surgery (SDC) | payer OTHER, MEDICAID ==
[2017-12-05] MEDS ORDERED: MIDAZOLAM 2 MG/2 ML VIAL IVP PRN (11:51)
[2017-12-05] MEDS ORDERED: MEPERIDINE 25 MG/ML SYR IVP PRN (11:51)
[2017-12-05] MEDS ORDERED: fentaNYL 100 MCG/2 ML INJ IVP PRN (11:51)
[2017-12-05] MEDS ORDERED: GLUCAGON HCL 1 MG VIAL IVP PRN (11:51)
[2017-12-05] MEDS ORDERED: ALTEPLASE 2 MG VIAL IVP PRN (11:51)
[2017-12-05] MEDS ORDERED: HEPARIN 10,000 UNIT/10 ML MDV (1,000 UNIT/ML) IVP PRN (11:51)
[2017-12-05] MEDS ORDERED: FLUMAZENIL 0.5 MG/5 ML MDV IVP PRN (11:51)
[2017-12-05] MEDS ORDERED: PROTAMINE SULFATE 50 MG/5 ML VIAL IVP PRN (11:51)
[2017-12-05] MEDS ORDERED: NALOXONE HCL 0.4 MG/ML INJ IVP PRN (11:51)
[2017-12-05] MEDS ORDERED: NS 1,000 ML IV SCH (12:00)
--- NOTE | 2017-12-05 12:46 | PDRADPRE ---
Radiology History & Physical Indication for procedure: other (Routine surveillance on previously thrombosed AVF. Pt. reports dialysis functioning well at this time, but thrombosed 2 months prior. ) Home medications: ARIPiprazole [Abilify 10 mg (*)] 17.5 mg PO HS 01/18/17 [Last Taken 12/04/17 20: 00] Polyethylene Glycol 3350 [Miralax 17 gm (*)] 17 gm PO DAILY 01/18/17 [Last Taken 12/04/17] Sertraline HCl [Zoloft 50mg (*)] 50 mg PO HS 01/18/17 [Last Taken 12/04/17 20:00 ] amLODIPine BESYLATE [Norvasc 10 mg (*)] 2.5 mg PO DAILY 01/18/17 [Last Taken 05/13 08:00] Furosemide [Lasix 40 MG (*)] 120 mg PO BIDDIUR 07/12/17 [Last Taken 09/25/17] Insulin Glargine [Lantus 100 UNITS/ML (*)] 12 units SC BID 07/12/17 [Last Taken 12/05/17 08:00] Nitrostat 0.4 mg (*) 0.4 mg PO PRN 07/12/17 [Last Taken Unknown] RENVELA 800 mg PO TID 07/12/17 [Last Taken 12/05/17 11:00] Trajenta 5 mg PO DAILY 07/12/17 [Last Taken 12/05/17 0800] ALPHA LIPOIC ACID 600 mg PO DAILY 12/03/17 [Last Taken Unknown] Duoneb (*) IH Q4H PRN 12/03/17 [Last Taken Unknown] Melatonin 3 mg PO HS 12/03/17 [Last Taken 12/04/17 20:00] Prostat 30 ml PO BID 12/03/17 [Last Taken 12/05/17 11:00] Allergies/Adverse Reactions: KALYANI Inhibitors Allergy (Verified 09/25/17 13:44) Loss of consciousness aspartame [artifical sweetener] Allergy (Verified 12/03/17 10:30) aspirin Allergy (Verified 09/25/17 13:44) Burning Skin Sensation gentamicin Allergy (Verified 09/25/17 13:44) [place] Skin Sensation lisinopril Allergy (Verified 09/25/17 13:44) Loss of consciousness metformin Allergy (Verified 09/25/17 13:44) DAMAGED KIDNEYS Sulfa (Sulfonamide Antibiotics) Allergy (Verified 09/25/17 13:44) Itching seasonal allergies Allergy (Uncoded 09/25/17 13:44) ITCHY EYES Mental status: A&Ox3 Mallampati Score: Class 2
--- NOTE | 2017-12-05 12:47 | PDPROPOC ---
Sedation Plan of Care Sedation Plan of Care: mental status noted ASA Classification: ASA 1 Planned drugs: fentanyl Mallampati Score: Class 2 Mallampati Reference Image: Patient passed 3-3-2 rule?: Yes
[2017-12-05] MEDS ORDERED: HEPARIN 10,000 UNIT/10 ML MDV (1,000 UNIT/ML) ONE (13:20)
--- NOTE | 2017-12-05 13:39 | PDRADPN ---
Radiology Procedure Note Date of Procedure: 12/05/17 Radiologist: Luís Durbin Anesthesia: Other (Specify) (Fentanyl only) Pre-op Diagnosis: High venous pressures at dialysis, ESRD Post-op Diagnosis: ESRD, AVF dysfunction Indication: High venous pressures at dialysis, routine surveillance Procedure: AVF eval, angioplasty venous outflow tract Finding(s): High grade stenosis venous outflow tract brachial vein successfully balloon dilated. Widely patent central venous outflow and anastomosis. Inf/Abcess present in the surg proc area at time of surgery?: No
[2017-12-05] MEDS ORDERED: fentaNYL 100 MCG/2 ML INJ ONE (13:41)
[2017-12-05 13:51] VITALS: BP 115/59
[2017-12-05] MEDS ORDERED: IOPAMIDOL (ISOVUE-300) 100 ML BTL ONE (14:27)
== END 2017-12-05 14:30 ==
LOC: FIMAGING 11:34
PROVIDERS: ATTEND Radiology Vascular & Interventional Radiology
DX: T82.858A Stenosis of other vascular prosthetic devices, implants and grafts, initial encounter (principal); N18.6 End stage renal disease; Z99.2 Dependence on renal dialysis
CPT/HCPCS: 36902; 99152; C1769; C1894; C1725; J1644; J2310; J3010; Q9967

== ENCOUNTER 2018-03-11 07:40 | Day surgery (SDC) | payer OTHER, MEDICAID ==
[2018-03-11] MEDS ORDERED: PROTAMINE SULFATE 50 MG/5 ML VIAL IVP PRN (08:20)
[2018-03-11] MEDS ORDERED: NALOXONE HCL 0.4 MG/ML INJ IVP PRN (08:20)
[2018-03-11] MEDS ORDERED: FLUMAZENIL 0.5 MG/5 ML MDV IVP PRN (08:20)
[2018-03-11] MEDS ORDERED: HEPARIN 10,000 UNIT/10 ML MDV (1,000 UNIT/ML) IVP PRN (08:20)
[2018-03-11] MEDS ORDERED: fentaNYL 100 MCG/2 ML INJ IVP PRN (08:20)
[2018-03-11] MEDS ORDERED: MIDAZOLAM 2 MG/2 ML VIAL IVP PRN (08:20)
[2018-03-11] MEDS ORDERED: ALTEPLASE 2 MG VIAL IVP PRN (08:20)
[2018-03-11] MEDS ORDERED: NS 1,000 ML IV SCH (08:30)
[2018-03-11] MEDS ORDERED: IOPAMIDOL (ISOVUE-300) 100 ML BTL ONE (09:54)
--- NOTE | 2018-03-11 10:27 | PDRADPN ---
Radiology Procedure Note Date of Procedure: 03/11/18 Radiologist: Swati Samuel Pre-op Diagnosis: ESRD Post-op Diagnosis: SAME Indication: ROUTINE AVF CHECK Procedure: av fistulogram with angioplasty Inf/Abcess present in the surg proc area at time of surgery?: No
[2018-03-11 10:43] VITALS: BP 110/63
== END 2018-03-11 11:30 | disposition home or self-care (01) ==
LOC: FIMAGING 07:40
PROVIDERS: ATTEND Radiology Diagnostic Radiology
PROC: B34JZZZ Ultrasonography of Left Upper Extremity Arteries (ICD-10-PCS; principal; 2018-03-11 10:25)
PROC: 037Y3DZ Dilation of Upper Artery with Intraluminal Device, Percutaneous Approach (ICD-10-PCS; principal; 2018-03-11 10:25)
PROC: B31J1ZZ Fluoroscopy of Left Upper Extremity Arteries using Low Osmolar Contrast (ICD-10-PCS; principal; 2018-03-11 10:25)
DX: T82.858A Stenosis of other vascular prosthetic devices, implants and grafts, initial encounter (principal); N18.6 End stage renal disease
CPT/HCPCS: 36902; 76937; C1769; C1894; C1725; J1644; J2250; J2310; J3010; Q9967

== ENCOUNTER 2018-06-17 07:16 | Day surgery (SDC) | payer OTHER, MEDICAID ==
--- NOTE | 2018-06-17 08:36 | PDPROPOC ---
Sedation Plan of Care ASA Classification: ASA 2 Mallampati Score: Class 2 Mallampati Reference Image:
--- NOTE | 2018-06-17 08:36 | PDRADPRE ---
Radiology History & Physical Indication for procedure: renal failure Home medications: ARIPiprazole [Abilify 10 mg (*)] 17.5 mg PO HS 01/18/17 [Last Taken 06/16/18] Polyethylene Glycol 3350 [Miralax 17 gm (*)] 17 gm PO DAILY 01/18/17 [Last Taken 06/15/18] Sertraline HCl [Zoloft 50mg (*)] 50 mg PO HS 01/18/17 [Last Taken 06/16/18] Furosemide [Lasix 40 MG (*)] 120 mg PO 07/12/17 [Last Taken 06/17/18] Insulin Glargine [Lantus 100 UNITS/ML] 12 units SC BID 07/12/17 [Last Taken ] Nitrostat 0.4 mg (*) 0.4 mg PO PRN 07/12/17 [Last Taken Unknown] RENVELA 800 mg PO TID 07/12/17 [Last Taken 06/16/18] Trajenta 5 mg PO 07/12/17 [Last Taken 06/17/18] Duoneb (*) IH Q4H PRN 12/03/17 [Last Taken Unknown] Melatonin 3 mg PO HS 12/03/17 [Last Taken 06/16/18] Prostat 30 ml PO BID 12/03/17 [Last Taken 06/16/18] Carvedilol [Coreg (*)] 25 mg PO 03/06/18 [Last Taken 06/16/18] Losartan Potassium [Cozaar 25 mg (*)] 50 mg PO 03/06/18 [Last Taken 06/17/18] hydrALAZINE [Apresoline 50 mg (*)] 50 mg PO 03/06/18 [Last Taken 06/17/18] Allergies/Adverse Reactions: KALYANI Inhibitors Allergy (Verified 09/25/17 13:44) Loss of consciousness aspartame [artifical sweetener] Allergy (Verified 06/17/18 08:19) can't breath aspirin Allergy (Verified 06/17/18 08:19) Itching gentamicin Allergy (Verified 09/25/17 13:44) [place] Skin Sensation lisinopril Allergy (Verified 09/25/17 13:44) Loss of consciousness metformin Allergy (Verified 09/25/17 13:44) DAMAGED KIDNEYS Sulfa (Sulfonamide Antibiotics) Allergy (Verified 03/06/18 13:29) Itching seasonal allergies Allergy (Uncoded 09/25/17 13:44) ITCHY EYES Mental status: A&Ox3
[2018-06-17] MEDS ORDERED: NALOXONE HCL 0.4 MG/ML INJ ONE (08:45)
[2018-06-17] MEDS ORDERED: MIDAZOLAM 2 MG/2 ML VIAL ONE ×2 (08:45→08:46)
[2018-06-17] MEDS ORDERED: fentaNYL 100 MCG/2 ML INJ ONE (08:46)
[2018-06-17] MEDS ORDERED: fentaNYL 100 MCG/2 ML INJ IVP PRN (08:51)
[2018-06-17] MEDS ORDERED: NALOXONE HCL 0.4 MG/ML INJ IVP PRN (08:51)
[2018-06-17] MEDS ORDERED: MIDAZOLAM 2 MG/2 ML VIAL IVP PRN (08:51)
[2018-06-17] MEDS ORDERED: FLUMAZENIL 0.5 MG/5 ML MDV IVP PRN (08:51)
[2018-06-17] MEDS ORDERED: NS 1,000 ML IV SCH (09:00)
[2018-06-17] MEDS ORDERED: IOPAMIDOL (ISOVUE-370) 150 ML BTL IV ONE (09:37)
[2018-06-17] MEDS ORDERED: ACETAMINOPHEN 325 MG TAB PO PRN (10:03)
[2018-06-17] MEDS ORDERED: ONDANSETRON 4 MG/2 ML VIAL IVP PRN (10:03)
--- NOTE | 2018-06-17 10:06 | PDRADPN ---
Radiology Procedure Note Date of Procedure: 06/17/18 Radiologist: Keaton Gaxiola Anesthesia: IV Sedation Pre-op Diagnosis: AV fistula Post-op Diagnosis: same Procedure: fistulogram, outflow plasty Inf/Abcess present in the surg proc area at time of surgery?: No
[2018-06-17 12:56] VITALS: BP 106/65
== END 2018-06-17 12:51 ==
LOC: FIMAGING 07:16
PROVIDERS: ATTEND Radiology Diagnostic Radiology
PROC: 037Y3DZ Dilation of Upper Artery with Intraluminal Device, Percutaneous Approach (ICD-10-PCS; principal; 2018-06-17 10:15)
PROC: B31J1ZZ Fluoroscopy of Left Upper Extremity Arteries using Low Osmolar Contrast (ICD-10-PCS; principal; 2018-06-17 10:15)
PROC: B34JZZZ Ultrasonography of Left Upper Extremity Arteries (ICD-10-PCS; principal; 2018-06-17 10:15)
DX: T82.858A Stenosis of other vascular prosthetic devices, implants and grafts, initial encounter (principal); I77.0 Arteriovenous fistula, acquired
CPT/HCPCS: 36902; 76937; 99152; 99153; C1769; C1894; C1725; J1644; J2250; J2310; J3010; Q9967

== ENCOUNTER 2018-09-16 09:22 | Day surgery (SDC) | payer OTHER, MEDICAID ==
[2018-09-16] MEDS ORDERED: IOPAMIDOL (ISOVUE-300) 100 ML BTL ONE (09:41)
--- NOTE | 2018-09-16 09:51 | PDRADPRE ---
Radiology History & Physical Indication for procedure: renal failure Home medications: ARIPiprazole [Abilify 10 mg (*)] 17.5 mg PO HS 01/18/17 [Last Taken 06/16/18] Polyethylene Glycol 3350 [Miralax 17 gm (*)] 17 gm PO DAILY 01/18/17 [Last Taken 06/15/18] Sertraline HCl [Zoloft 50mg (*)] 50 mg PO HS 01/18/17 [Last Taken 06/16/18] Furosemide [Lasix 40 MG (*)] 120 mg PO 07/12/17 [Last Taken 06/17/18] Insulin Glargine [Lantus 100 UNITS/ML] 12 units SC BID 07/12/17 [Last Taken ] Nitrostat 0.4 mg (*) 0.4 mg PO PRN 07/12/17 [Last Taken Unknown] RENVELA 800 mg PO TID 07/12/17 [Last Taken 06/16/18] Trajenta 5 mg PO 07/12/17 [Last Taken 06/17/18] Duoneb (*) IH Q4H PRN 12/03/17 [Last Taken Unknown] Melatonin 3 mg PO HS 12/03/17 [Last Taken 06/16/18] Prostat 30 ml PO BID 12/03/17 [Last Taken 06/16/18] Carvedilol [Coreg (*)] 25 mg PO 03/06/18 [Last Taken 06/16/18] Losartan Potassium [Cozaar 25 mg (*)] 50 mg PO 03/06/18 [Last Taken 06/17/18] hydrALAZINE [Apresoline 50 mg (*)] 50 mg PO 03/06/18 [Last Taken 06/17/18] Allergies/Adverse Reactions: KALYANI Inhibitors Allergy (Verified 09/25/17 13:44) Loss of consciousness aspartame [artifical sweetener] Allergy (Verified 06/17/18 08:19) can't breath aspirin Allergy (Verified 06/17/18 08:19) Itching gentamicin Allergy (Verified 09/25/17 13:44) [place] Skin Sensation lisinopril Allergy (Verified 09/25/17 13:44) Loss of consciousness metformin Allergy (Verified 09/25/17 13:44) DAMAGED KIDNEYS Sulfa (Sulfonamide Antibiotics) Allergy (Verified 03/06/18 13:29) Itching seasonal allergies Allergy (Uncoded 09/25/17 13:44) ITCHY EYES Mental status: A&Ox3
--- NOTE | 2018-09-16 09:51 | PDPROPOC ---
Sedation Plan of Care ASA Classification: ASA 3 Mallampati Score: Class 2 Mallampati Reference Image:
[2018-09-16] MEDS ORDERED: MIDAZOLAM 2 MG/2 ML VIAL ONE (10:24)
[2018-09-16] MEDS ORDERED: fentaNYL 100 MCG/2 ML INJ ONE (10:24)
[2018-09-16] MEDS ORDERED: NALOXONE HCL 0.4 MG/ML INJ IVP PRN (10:25)
[2018-09-16] MEDS ORDERED: fentaNYL 100 MCG/2 ML INJ IVP PRN (10:25)
[2018-09-16] MEDS ORDERED: GLUCAGON HCL 1 MG VIAL IVP PRN (10:25)
[2018-09-16] MEDS ORDERED: HEPARIN 10,000 UNIT/10 ML MDV (1,000 UNIT/ML) IVP PRN (10:25)
[2018-09-16] MEDS ORDERED: MEPERIDINE 25 MG/ML SYR IVP PRN (10:25)
[2018-09-16] MEDS ORDERED: FLUMAZENIL 0.5 MG/5 ML MDV IVP PRN (10:25)
[2018-09-16] MEDS ORDERED: PROTAMINE SULFATE 50 MG/5 ML VIAL IVP PRN (10:25)
[2018-09-16] MEDS ORDERED: ALTEPLASE 2 MG VIAL IVP PRN (10:25)
[2018-09-16] MEDS ORDERED: MIDAZOLAM 2 MG/2 ML VIAL IVP PRN (10:25)
[2018-09-16] MEDS ORDERED: NS 1,000 ML IV SCH (10:30)
[2018-09-16] MEDS ORDERED: ONDANSETRON 4 MG/2 ML VIAL IVP PRN (11:03)
[2018-09-16] MEDS ORDERED: ACETAMINOPHEN 325 MG TAB PO PRN (11:03)
--- NOTE | 2018-09-16 11:05 | PDRADPN ---
Radiology Procedure Note Date of Procedure: 09/16/18 Radiologist: Keaton Gaxiola Anesthesia: IV Sedation Pre-op Diagnosis: AV fistula Post-op Diagnosis: same Procedure: venogram, venoplasty Inf/Abcess present in the surg proc area at time of surgery?: No
[2018-09-16 11:28] VITALS: BP 116/71
--- NOTE | 2018-09-18 10:18 | CPEKG ---
Test Reason : Blood Pressure : / mmHG Vent. Rate : 080 BPM Atrial Rate : 081 BPM P-R Int : 221 ms QRS Dur : 073 ms QT Int : 415 ms P-R-T Axes : 072 047 063 degrees QTc Int : 479 ms Sinus rhythm Prolonged HI interval Low voltage, extremity leads diffuse st elevation without reciprocal changes....consider pericarditis Confirmed by Philip Poon ([id number] on 09/18/2018 10:18:00 AM Referred By: MARIA ELENA MCINTYRE Confirmed By:Philip Poon
== END 2018-09-16 12:35 | disposition home health service (06) ==
LOC: FIMAGING 09:22
PROVIDERS: ATTEND Internal Medicine Nephrology
PROC: 057F3ZZ Dilation of Left Cephalic Vein, Percutaneous Approach (ICD-10-PCS; principal; 2018-09-16 11:12)
DX: T82.858A Stenosis of other vascular prosthetic devices, implants and grafts, initial encounter (principal)
CPT/HCPCS: 36902; 76937; 93005; 99152; C1769; C1894; C1725; J1644; J2250; J3010; Q9967